=== PATIENT | female | born 1965 | race Caucasian/White ===

== ENCOUNTER 2017-12-14 01:10 | Inpatient (IN) | payer MEDICAID ==
--- NOTE | 2017-12-14 01:17 | ED Physician Chart ---
ED Chief Complaint/HPI - Patient Information Date Seen:: 12/14/17 Time Seen:: 01:17 Chief Complaint:: Head trauma History of Present Illness:: 52 yo female was brought by neighbour from home to ER for a right temporal scalp laceration. Patient could not remember a fall but later recalled possible seizure on the floor hitting her head on a furniture. Patient had history of alcoholic cirrhosis, hepatocellular carcinoma s/p transarterial chemoembolization (Jun 2016), upper GI bleed, coagulopathy, thrombocytopenia, and alcohol withdrawal seizure. Patient last drank alcohol two days ago. ED Review of Systems - Review of Systems General/Constitutional: No fever, Chills Skin: Skin lesions Head: Headache Eyes: No pain ENT: No nasal drainage Neck: No neck pain Cardio Vascular: No chest pain Pulmonary: No SOB GI: No nausea, No vomiting, Pain Musculoskeletal: Bone or joint pain, Back pain Neurological: Syncope ED Past Medical History - Past Medical History Past Medical History: Seizures (alcohol withdrawal seizure), Other (Alcoholic cirrhosis, hepatocellular carcinoma s/p TACE (Jun 2016), upper GI bleed, coagulopathy, thrombobytopenia) Social History: Non Smoker, Alcohol, No Drug Use Surgical History: other (abdominal surgery, transarterial chemoembolization) Family Medical History - Family Member Mother History Unknown: Yes ED Physical Exam - Physical Examination General/Constitutional: Awake, Alert Other Gen/Cons comments:: In significant distress, shaking and tremor of bilateral upper extremities Other Head comments:: 2cm superficial laceration on the right temporal scalp with oozing of venous blood Eyes: PERRL ENMT: Nasal exam nl Neck: No nuchal rigidity Respiratory: No Wheeze/Rhonchi/Rales Cardio Vascular: RRR, No murmur, gallop, rubs, NL S1 S2 GI: No tenderness/rebounding/guarding Extremities: normal strength in all extremities Other Extremities comments:: tremor of bilateral upper extremities, low back pain Neuro/Psych: Alert/oriented, No focal deficits ED Labs/Radiology/EKG Results - Lab Results Results: Laboratory Last Values WBC 9.6 Th/cmm (4.8-10.8) 12/14/17 01:25 RBC 3.35 Mil/cmm (3.80-5.10) L 12/14/17 01:25 Hgb 11.9 gm/dL (12-16) L 12/14/17 01:25 Hct 35.6 % (41.0-60) L 12/14/17 01:25 MCV 106.3 fl (81-100) H 12/14/17 01:25 MCH 35.4 pg (27.0-31.0) H 12/14/17 01:25 MCHC Differential 33.3 pg (28.0-36.0) 12/14/17 01:25 RDW 13.9 % (11.5-20.0) 12/14/17 01:25 Plt Count 81 Th/cmm (150-400) L 12/14/17 01:25 MPV 6.6 fl 12/14/17 01:25 Band Neutrophils % 3 % (0-10) 12/14/17 01:25 Neutrophils (Manual) 86 % (40-80) H 12/14/17 01:25 Lymphocytes 11 % (20-50) L 12/14/17 01:25 Platelet Estimate SLIGHT DECREASED (NORMAL) 12/14/17 01:25 Anisocytosis 2+ 12/14/17 01:25 Macrocytosis 2+ 12/14/17 01:25 PT 16.7 SECONDS (9.5-11.5) H 12/14/17 01:25 INR 1.57 (0.5-1.4) H 12/14/17 01:25 PTT (Actin FS) 33.0 SECONDS (26.0-38.0) 12/14/17 01:25 Sodium 136 mEq/L (136-145) 12/14/17 01:25 Potassium 3.5 mEq/L (3.5-5.1) 12/14/17 01:25 Chloride 94 mEq/L (98-107) L 12/14/17 01:25 Carbon Dioxide 20.4 mEq/L (21.0-31.0) L 12/14/17 01:25 Anion Gap 25.1 (7.0-16.0) H 12/14/17 01:25 BUN 7 mg/dL (7-25) 12/14/17 01:25 Creatinine 0.7 mg/dL (0.6-1.2) 12/14/17 01:25 Est GFR ( Amer) > 60.0 ml/min (>90) 12/14/17 01:25 Est GFR (Non-Af Amer) > 60.0 ml/min 12/14/17 01:25 BUN/Creatinine Ratio 10.0 12/14/17 01:25 Glucose 162 mg/dL (70-105) H 12/14/17 01:25 Calcium 9.5 mg/dL (8.6-10.3) 12/14/17 01:25 Total Bilirubin 4.9 mg/dL (0.3-1.0) H 12/14/17 01:25 AST 190 U/L (13-39) H 12/14/17 01:25 ALT 43 U/L (7-52) 12/14/17 01:25 Alkaline Phosphatase 319 U/L (34-104) H 12/14/17 01:25 Ammonia 127 umol/L (16-53) H 12/14/17 01:25 Total Protein 8.7 gm/dL (6.0-8.3) H 12/14/17 01:25 Albumin 4.0 gm/dL (3.7-5.3) 12/14/17 01:25 Globulin 4.7 gm/dL 12/14/17 01:25 Albumin/Globulin Ratio 0.9 (1.0-1.8) L 12/14/17 01:25 Ethyl Alcohol < 10 mg/dL (0-10) 12/14/17 01:25 Blood Type O POSITIVE 12/14/17 01:25 Antibody Screen NEGATIVE 12/14/17 01:25 - Radiology Results Results: CT head without contrast: no acute intracranial hemorrhage, midline shift or mass effect - EKG Interpretations EKG Time:: 01:31 Rate & Rhythm: 151, sinus tachycardia with multiple premature ventricular and supraventric Elizabeth: LVH Intervals: NE 93, QRSD 91 Comments:: Non specific ST-T changes ED Assessment - Assessment General Assessment: Syncope vs alcohol withdrawal seizure Right scalp laceration Tachycardia Macrocytic anemia Thrombocytopenia Coagulopathy Hyperammonemia secondary to liver cirrhosis Assessment/Comments:: CBC, CMP, PT/PTT, ammonia, etoh level CT head without contrast Laceration repair NS 1L IV bolus Zofran 4mg IV Lactulose 30g PO Librium 25mg PO Metoprolol 25mg po Metoprolol 10mg IV Toradol 30mg IV Tylenol 650mg PO Admit to telemetry for further evaluation. Location:: Right temporal laceration Laceration Type:: Simple Wound Length: 2 cm Prep/Irrigation:: NS, hydrogen peroxide, betadine Comments: After 1% lidocaine with epinephrine was injected to achieve local anesthesia, 3 simple interrupted sutures was placed with with 4.0 Prolene and hemostasis was achieved. Bacitracin was applied topically at the wound. Patient tolerated procedure well. ED Septic Shock - . Is Septic Shock (SBP<90, OR Lactate>4 mmol\L) present?: No ED Reassessment (Disposition) - Reassessment Reassessment:: After metoprolol 25mg PO and metoprolol 10mg IV, patient's tachycardia was later converted to sinus rhythm. Reassessment Condition:: Improved - Patient Disposition Discharge/Transfer:: Acute Care w/in this hosp Admitting Medical Physician:: Eric Del Angel ED Discharge Plan - Patient Disposition Admit/Discharge/Transfer: Acute Care w/in this hosp Condition at Disposition: Stable
[2017-12-14] MEDS ORDERED: Sodium Chloride 0.9% 1,000 ML IV ONE (01:38)
[2017-12-14 01:41] LABS: HEMATOCRIT 35.6 % (41.0-60); HEMOGLOBIN 11.9 gm/dL (12-16); MEAN CORPUSCULAR HEMOGLOBIN 35.4 pg (27.0-31.0); MEAN CORPUSCULAR HGB CONC 33.3 pg (28.0-36.0); MEAN PLATELET VOLUME 6.6 fl; PLATELET COUNT 81 Th/cmm (150-400); RED BLOOD COUNT 3.35 Mil/cmm (3.80-5.10); RED CELL DISTRIBUTION WIDTH 13.9 % (11.5-20.0); WHITE BLOOD COUNT 9.6 Th/cmm (4.8-10.8)
[2017-12-14 01:51] LABS: INR 1.57 (0.5-1.4); PROTHROMBIN TIME (TEST) 16.7 SECONDS (9.5-11.5)
[2017-12-14 01:53] LABS: ALB/GLOB RATIO 0.9 (1.0-1.8); ALKALINE PHOSPHATASE 319 U/L (34-104); ANION GAP 25.1 (7.0-16.0); BILIRUBIN,TOTAL 4.9 mg/dL (0.3-1.0); BUN - UREA NITROGEN 7 mg/dL (7-25); CALCIUM SERUM 9.5 mg/dL (8.6-10.3); CARBON DIOXIDE 20.4 mEq/L (21.0-31.0); CHLORIDE 94 mEq/L (98-107); CREATININE - SERUM 0.7 mg/dL (0.6-1.2); GFR AFRICAN-AMERICAN > 60.0 ml/min (>90); GFR NON AFRICAN-AMERICAN > 60.0 ml/min; GLUCOSE 162 mg/dL (70-105); POTASSIUM SERUM 3.5 mEq/L (3.5-5.1); SGOT 190 U/L (13-39); SGPT/ALT 43 U/L (7-52); SODIUM SERUM 136 mEq/L (136-145); TOTAL PROTEIN,SERUM 8.7 gm/dL (6.0-8.3)
[2017-12-14 02:10] LABS: MANUAL DIFF REQUIRED? YES
[2017-12-14 02:26] LABS: BAND NEUTROPHILE 3 % (0-10); LYMPHOCYTE 11 % (20-50); NEUTROPHILS 86 % (40-80); TOTAL CELLS COUNTED 100
[2017-12-14 02:27] LABS: ANISOCYTOSIS 2+; PLATELET ESTIMATE SLIGHT DECREASED (NORMAL)
[2017-12-14 02:39] LABS: MEAN CELL VOLUME 106.3 fl (81-100)
[2017-12-14] MEDS ORDERED: Lactulose 10 Gm/15 mL 30mL UDC PO STA (02:46)
[2017-12-14] MEDS ORDERED: Bacitracin pkt 1 gm Pkt TP STA (02:47)
[2017-12-14] MEDS ORDERED: EPINEPHRine /Lidocaine 1% 20 mL Vial INJ ONE (02:55)
[2017-12-14] MEDS ORDERED: Bacitracin pkt 1 gm Pkt TP ONE (03:00)
[2017-12-14] MEDS ORDERED: Lactulose 10 Gm/15 mL 30mL UDC ONE (03:01)
[2017-12-14] MEDS ORDERED: Metoprolol tartrate 1 mg/ml 5mL Amp IV STA (03:47)
[2017-12-14] MEDS ORDERED: Metoprolol tartrate 1 mg/ml 5mL Amp IV ONE (03:51)
--- NOTE | 2017-12-14 07:52 | Diagnostic Imaging Report ---
Head CT without intravenous contrast Indication: Trauma Comparison: None Technique: Axial images were obtained from the vertex to the skull base without IV contrast. Coronal reconstructions were made. Total DLP: 764, CTDI42 FINDINGS: Images of the brain obtained without contrast demonstrate no acute hemorrhage. No mass lesions identified. The ventricles and basal cisterns are patent. The louis-white matter differentiation is preserved. There is no mass effect or midline shift. Atherosclerosis is noted. No skull fractures identified. There is mild soft tissue swelling of the right frontal scalp. The paranasal sinuses are clear. IMPRESSION: No acute intracranial abnormality. Mild soft tissue swelling of the right frontal scalp. No evidence of a skull fracture. Atherosclerotic vascular disease.
[2017-12-14 08:03] LABS: URINE MICROSCOPIC INDICATED? YES; URINE SOURCE RANDOM
[2017-12-14 08:25] LABS: URINE BILIRUBIN NEGATIVE (NEGATIVE); URINE BLOOD TRACE (NEGATIVE); URINE GLUCOSE (UA) NEGATIVE (NEGATIVE); URINE KETONE NEGATIVE (NEGATIVE); URINE LEUKOCYTE ESTERASE NEGATIVE (NEGATIVE); URINE NITRATE NEGATIVE (NEGATIVE); URINE PROTEIN TRACE mg/dL (NEGATIVE); URINE UROBILINOGEN 0.2 E.U./dL (0.2 - 1.0)
[2017-12-14 08:29] LABS: URINE CLARITY CLEAR (CLEAR); URINE COLOR YELLOW
[2017-12-14 08:35] LABS: URINE BACTERIA OCCASIONAL /hpf (NONE SEEN); URINE EPITHELIAL CELLS FEW /lpf (FEW); URINE WBC 0-2 /hpf (0-5)
[2017-12-14] MEDS: Hydrocodone/APAP 5mg/325mg Tab PO PRN ×2 (08:50→17:58)
--- NOTE | 2017-12-14 09:28 | History and Physical ---
History of Present Illness - [facility] Vital Signs: Last Vital Signs Temp 96.8 F 12/14/17 06:49 Pulse 81 12/14/17 06:49 Resp 20 12/14/17 06:49 BP 137/76 12/14/17 06:49 Pulse Ox 95 12/14/17 06:49 Family Medical History - Family Member Mother History Unknown: Yes - Medications Home Medications: Home Medication Medication Instructions Recorded Type metroNIDAZOLE [Flagyl] 500 mg PO TID 12/14/17 History - Allergies Allergies/Adverse Reactions: Allergies Allergy/AdvReac Type Severity Reaction Status Date / Time contrast Allergy Unknown Uncoded 12/14/17 01:17 - Lab Results All Lab Results last 24 hours: Laboratory Results - last 24 hr 12/14/17 12/14/17 12/14/17 01:25 01:25 01:25 WBC 9.6 RBC 3.35 L Hgb 11.9 L Hct 35.6 L MCV 106.3 H MCH 35.4 H MCHC Differential 33.3 RDW 13.9 Plt Count 81 L MPV 6.6 Band Neutrophils % 3 Neutrophils (Manual) 86 H Lymphocytes 11 L Platelet Estimate SLIGHT DECREASED Anisocytosis 2+ Macrocytosis 2+ PT 16.7 H INR 1.57 H PTT (Actin FS) 33.0 Sodium 136 Potassium 3.5 Chloride 94 L Carbon Dioxide 20.4 L Anion Gap 25.1 H BUN 7 Creatinine 0.7 Est GFR ( Amer) > 60.0 Est GFR (Non-Af Amer) > 60.0 BUN/Creatinine Ratio 10.0 Glucose 162 H Calcium 9.5 Total Bilirubin 4.9 H AST 190 H ALT 43 Alkaline Phosphatase 319 H Ammonia Total Protein 8.7 H Albumin 4.0 Globulin 4.7 Albumin/Globulin Ratio 0.9 L Urine Source Urine Color Urine Clarity Urine pH Ur Specific [place] Urine Protein Urine Glucose (UA) Urine Ketones Urine Blood Urine Nitrate Urine Bilirubin Urine Urobilinogen Ur Leukocyte Esterase Urine RBC Urine WBC Ur Epithelial Cells Urine Bacteria Ethyl Alcohol < 10 Blood Type Antibody Screen 12/14/17 12/14/17 12/14/17 01:25 01:25 06:00 WBC RBC Hgb Hct MCV MCH MCHC Differential RDW Plt Count MPV Band Neutrophils % Neutrophils (Manual) Lymphocytes Platelet Estimate Anisocytosis Macrocytosis PT INR PTT (Actin FS) Sodium Potassium Chloride Carbon Dioxide Anion Gap BUN Creatinine Est GFR ( Amer) Est GFR (Non-Af Amer) BUN/Creatinine Ratio Glucose Calcium Total Bilirubin AST ALT Alkaline Phosphatase Ammonia 127 H Total Protein Albumin Globulin Albumin/Globulin Ratio Urine Source RANDOM Urine Color YELLOW Urine Clarity CLEAR Urine pH 8.0 Ur Specific [place] 1.015 Urine Protein TRACE Urine Glucose (UA) NEGATIVE Urine Ketones NEGATIVE Urine Blood TRACE Urine Nitrate NEGATIVE Urine Bilirubin NEGATIVE Urine Urobilinogen 0.2 Ur Leukocyte Esterase NEGATIVE Urine RBC 2-5 Urine WBC 0-2 Ur Epithelial Cells FEW Urine Bacteria OCCASIONAL Ethyl Alcohol Blood Type O POSITIVE Antibody Screen NEGATIVE - Assessment Assessment: Current Active Problems Problem Status Onset Alcohol abuse Acute Fall at home Acute
[2017-12-14] MEDS: D5-0.9%NS 1,000 ML IV SCH ×2 (09:53→22:44)
[2017-12-14] MEDS: Multivitamin w/ Minerals Tab PO SCH (10:19)
[2017-12-14] MEDS: Lactulose 10 Gm/15 mL 30mL UDC PO SCH ×2 (10:19→17:59)
--- NOTE | 2017-12-14 14:05 | History & Physical ---
ADMIT DATE: PATIENT IDENTIFICATION: A 53-year-old female. CHIEF COMPLAINT: Altered level of consciousness. HISTORY OF PRESENT ILLNESS: A 52-year-old female with history of alcoholic cirrhosis and hepatocellular carcinoma, status post chemotherapy, has history of alcohol withdrawal seizure as well. She was brought into the Emergency Room by neighbor after the patient was noted to have a right temporal scalp laceration. The patient was evaluated by Emergency Room MD and noted to have ____ associated with elevated ammonia level ____, the patient was advised to be admitted. PAST MEDICAL HISTORY: Remarkable for: 1. Cirrhosis of liver. 2. Alcohol abuse. 3. Hepatocellular carcinoma. 4. Seizure disorder. 5. History of Clostridium difficile colitis. MEDICATIONS AT HOME: She was taking the Flagyl. ALLERGIES: The patient is not allergic to any medication. SOCIAL HISTORY: The patient resides by herself and she has recently moved from [place]. The patient has a history of alcohol use, but no smoking cigarette or illicit drug use. FAMILY MEDICAL HISTORY: Remarkable for cancer. REVIEW OF SYSTEMS: The patient denies any headache. Denies any blurred vision, double vision. Denies any dysphagia. Does admit to having excessive sleepiness and palpitation. Denies any chest pain. Denies any abdominal pain. Denies any hematemesis. Denies any seizure or syncopal episode. Denies any seizure as long as she remembers, but she does state that she has history of seizure. PHYSICAL EXAMINATION: GENERAL: A 52-year-old looks older than her stated age, lying in the bed, flat affect. VITAL SIGNS: Temperature 98.6, pulse is 100, respiratory rate 20, blood pressure 141/83. HEENT: Normocephalic, atraumatic. Extraocular muscles intact. Sclerae with icterus. Tongue was pink and dry. Intact surgical dressing noted on the scalp area. NECK: Supple, no JVD, lymph nodes, or thyromegaly. HEART: Both heart sounds are regular. Tachycardia noted. CHEST: Lung equal in expansion with no expiratory wheezing. ABDOMEN: Distention. Bowel sounds noted. No palpable mass. EXTREMITIES: No edema. Pulses are +1. NEUROLOGIC: Alert, awake, follows commands. Moving upper and lower extremities with a decreased power. AVAILABLE DIAGNOSTIC DATA: White count of 9.6; hemoglobin 11.9; platelet count of 81,000. BUN and creatinine is 7 and 0.7. Bilirubin is 4.9. AST and ALT ____and 43, alkaline phosphatase is 319. Ammonia 127, total protein 8.7, globulin ratio is 0.9. Urine is unremarkable. Alcohol level is less than 10. EKG has SVT with unifocal PVCs noted. CT scan of the head was unremarkable. CLINICAL IMPRESSION: 1. Most likely alcohol withdrawal seizure with fall. 2. Status post lacerated wound on the right muslim area. 3. Hepatic encephalopathy. 4. Alcohol dependence. 5. Supraventricular tachycardia. 6. Multiple PVCs. 7. Thrombocytopenia. 8. Hepatic encephalopathy. 9. History of Clostridium difficile colitis. 10. Mild rhabdomyolysis. 11. High risk for fall. PLAN: 1. Admit this patient to telemetry unit. 2. Cardiology consultation. 3. GI and a psych consultation. 4. IV fluid. 5. Librium. 6. Folic acid, multivitamin, thiamine. 7. [place] for the pain. 8. Cardiac enzymes. 9. 2D echocardiogram. 10. Follow lab. 11. Follow consult recommendation. 12. Seizure precaution. 13. IV fluid. 14. Multivitamin, folic acid and thiamine. 15. Care plan reviewed and discussed with staff. JOB# [id number]
[2017-12-14 22:51] LABS: A1C % < 4.0 % (4.0-6.0); HEMOGLOBIN 13 g/dL (4.0-35.0)
[2017-12-15 01:01] LABS: ALB/GLOB RATIO 0.9 (1.0-1.8); ALBUMIN 3.4 gm/dL (3.7-5.3); ALKALINE PHOSPHATASE 224 U/L (34-104); BILIRUBIN,TOTAL 4.4 mg/dL (0.3-1.0); BUN - UREA NITROGEN 7 mg/dL (7-25); CALCIUM SERUM 8.4 mg/dL (8.6-10.3); CARBON DIOXIDE 25.9 mEq/L (21.0-31.0); CHLORIDE 99 mEq/L (98-107); CREATININE - SERUM 0.7 mg/dL (0.6-1.2); CREATININE KINASE 405 U/L (30-223); GFR AFRICAN-AMERICAN > 60.0 ml/min (>90); GFR NON AFRICAN-AMERICAN > 60.0 ml/min; GLUCOSE 135 mg/dL (70-105); SGOT 126 U/L (13-39); SGPT/ALT 31 U/L (7-52); SODIUM SERUM 134 mEq/L (136-145); TOTAL PROTEIN,SERUM 7.1 gm/dL (6.0-8.3)
[2017-12-15 01:09] LABS: POTASSIUM SERUM 2.9 mEq/L (3.5-5.1)
[2017-12-15] MEDS ORDERED: Potassium Chloride 20 mEq ER Tab PO ONE (02:30)
[2017-12-15] MEDS ORDERED: KCL 20mEq/100mL Premix 20 MEQ/100 ML PIGGYBACK IV ONE (02:30)
--- NOTE | 2017-12-15 05:22 | Consultation ---
DATE OF CONSULTATION: 12/14/2017 REASON FOR CONSULTATION: Abnormal liver enzyme. HISTORY OF PRESENT ILLNESS: This consult was obtained through the request of Dr. Del Angel for this 52-year-old with history of liver cancer due to cirrhosis from alcoholism who presented to the ER, brought in by a neighbor for head trauma after a fall. She was admitted and was found to have abnormal liver enzymes, so GI consult was called in for further evaluation. The patient is a poor historian. She cannot remember much about the fall. She denies drinking. PAST MEDICAL HISTORY: Liver cancer. PAST SURGICAL HISTORY: She had TACE as a procedure done for liver tumors. SOCIAL HISTORY: Denies smoking or drugs. Denies alcohol, but admits she was drinking in the past. By discussion by the center where she was treated, it seems she was still drinking at that time and she came, seems to be under the influence. FAMILY HISTORY: Noncontributory. ALLERGIES: No known drug allergies. MEDICATIONS: [place], Librium, folic acid, lactulose, Ativan, and vitamin B1. REVIEW OF SYSTEMS: Unobtainable. PHYSICAL EXAMINATION: GENERAL: The patient is awake, oriented to self, and in mild distress. VITAL SIGNS: Blood pressure is 141/83, heart rate 81, respiratory rate 18, and temperature is 98.4. HEAD AND NECK: Pupils reactive to light. Extraocular muscles could not be tested. The head is covered in bandage. Oral cavity, no lesion. NECK: Supple. CHEST: Good air entry. LUNGS: Clear to auscultation. CARDIOVASCULAR: Regular rate and rhythm. No murmur or gallop. ABDOMEN: Soft, positive bowel sounds. Abdomen was not tender. EXTREMITIES: Lower extremities, no edema. CENTRAL NERVOUS SYSTEM: Grossly nonfocal. LABORATORY DATA: Alcohol was less than 10. CPK was 584. Albumin is 4, bilirubin 4.9, AST 190, and ALT 43. PT 16.7 seconds. White count 9.6 and H and H are 11.9 and 35.6 with platelets of 81. IMPRESSION: A 52-year-old with history of alcohol abuse, history of cirrhosis, and history of liver cancer, now presenting with head trauma and abnormal liver enzymes. ASSESSMENT AND PLAN: Abnormal liver enzyme. This picture is consistent with the liver tumor with cirrhosis with ongoing alcohol use. Discussed with at [facility]. She is not a candidate right now for anymore TACE, but if she stopped drinking and liver numbers are better, she can be done. So, we will talk with the patient about sobriety and again rehab, joining Alcoholic Anonymous, etc., and then ____ but at this time doing any more study is not going to change much of the plan. 2. Cirrhosis, as above. 3. Alcohol abuse, as above. 4. Other medical problems such as head trauma, etc., as per Dr. Del Angel. Thank you, Dr. Del Angel, for allowing me to participate in the care of the patient. If you have any further questions, please let me know. JOB# [id number]
[2017-12-15 06:45] LABS: HEMOGLOBIN 10.6 gm/dL (12-16); MEAN CORPUSCULAR HEMOGLOBIN 35.1 pg (27.0-31.0); PLATELET COUNT 60 Th/cmm (150-400); RED BLOOD COUNT 3.01 Mil/cmm (3.80-5.10); WHITE BLOOD COUNT 8.3 Th/cmm (4.8-10.8)
[2017-12-15 06:52] LABS: MANUAL DIFF REQUIRED? YES
[2017-12-15 06:53] LABS: MEAN CELL VOLUME 106.3 fl (81-100)
[2017-12-15 07:45] LABS: BAND NEUTROPHILE 1 % (0-10); LYMPHOCYTE 10 % (20-50); MONOCYTE 4 % (2-10); NEUTROPHILS 85 % (40-80); TOTAL CELLS COUNTED 100
[2017-12-15 07:46] LABS: PLATELET ESTIMATE DECREASED PLATELETS (NORMAL)
[2017-12-15] MEDS: Lactulose 10 Gm/15 mL 30mL UDC PO SCH ×3 (08:04→21:36)
[2017-12-15] MEDS: Multivitamin w/ Minerals Tab PO SCH (08:04)
--- NOTE | 2017-12-15 08:58 | Consultation ---
DATE OF CONSULTATION: 12/15/2017 PSYCHIATRIC CONSULT PATIENT'S AGE: 52-year-old. SEX: Female. PHYSICIAN: Dr. Del Angel. COMBINATION BUILDING INSPECTOR: Dr. Fenton. TYPE OF THE REPORT: Psychiatric consult. REASON FOR THE CONSULT: Confusion and agitation. HISTORY OF PRESENT ILLNESS: The patient is a 52-year-old female who was admitted to the hospital because of altered level of conscious. The patient has history of alcohol cirrhosis. The patient also has hepatocellular carcinoma. The patient also has history of seizure disorder related to alcohol. Apparently, the patient is still drinking and last drink was 2 days prior to her admission when she drank unknown amount of vodka according to the report from her to the staff. The patient currently is confused. She is actively hallucinating and actively responding to stimuli and talking to imaginary objects. She also is restless and tried to get off the bed. PAST PSYCHIATRIC HISTORY: The patient has a problem with alcoholism. PAST MEDICAL HISTORY: The patient, as mentioned above, has a problem with liver . SOCIAL HISTORY: The patient is . Unable to get much information except the patient has been drinking heavily. MENTAL STATUS EXAM: The patient appears her stated age. Irritable mood. Anxious. Flat affect. Thought processes was rambling and the patient is confused, answer questions. The patient did not answer question regarding suicide or homicide. The patient is alert, but seems to be disoriented to time, place, person and situation. Unable to assess her memory orientation at this time because the patient is delirium and confused. ASSESSMENT: PRIMARY DIAGNOSIS: Delirium tremens. SECONDARY DIAGNOSIS: Alcohol use disorder. Alcohol hallucinosis. MEDICAL DIAGNOSIS: Rule out head trauma. Rule out intracranial hemorrhage. TREATMENT PLAN: We will monitor the patient's behavior closely. We will work on her psychosis and her delirium. Also, we will add Haldol and increase Ativan. Also, recommend CAT scan of the head. Thanks to Dr. Del Angel and we will follow with you. JOB# [id number]
--- NOTE | 2017-12-15 12:16 | Diagnostic Imaging Report ---
Head CT without intravenous contrast Indication: Altered level of consciousness Comparison: Head CT on 12/14/2017 Technique: Axial images were obtained from the vertex to the skull base without IV contrast. Coronal reconstructions were made. Total DLP: 710, CTDI37 FINDINGS: Images of the brain obtained without contrast demonstrate small area of high density seen along the anterior falcine region measuring 2 mm in greatest transverse dimension. No intraparenchymal hemorrhage identified. No mass effect or midline shift. Atrophy is noted. There is diffuse soft tissue swelling throughout the scalp bilaterally. This is increased since prior exam. Diffuse left preorbital and left facial soft tissue swelling is noted. The orbits and intraconal compartments are intact No evidence of a skull fracture. There is mucosal thickening in the paranasal sinuses. IMPRESSION: Small area of high density along the anterior falcine region measuring up to 2 mm in greatest transverse dimension. Findings may present falcine calcifications. A small focus of falcine hemorrhage is considered less likely but cannot be completely excluded.. A follow-up CT in 24 to 48 hours would provide additional detail and assessment. Diffuse scalp soft tissue swelling and edema now extending to the left side and involving the left facial and left preseptal regions. Findings may be due to infectious process. Clinical correlation and follow-up is recommended. Atrophy. Final results were administered to the referring team on 12/15/2017 at 12:13 PM.
[2017-12-15] MEDS: Mag Sulfate 2gm/50mL Premix 2 GM/50 ML BAG IV SCH ×2 (18:06→20:02)
--- NOTE | 2017-12-15 18:52 | Consultation ---
DATE OF CONSULTATION: 12/14/[address] Del Angel. HISTORY AND PHYSICAL: This is a 52-year-old female patient who had a fall with laceration on the scalp. Following this, the patient was brought to the Emergency Room, the patient had seizure activities secondary to alcohol withdrawal. During the hospital stay, the patient had supraventricular tachycardia and hence Cardiology consult was requested. PAST MEDICAL HISTORY: Alcohol dependence, seizure disorder, cirrhosis of liver, hepatocellular carcinoma with chemotherapy and surgery, thrombocytopenia, hepatic encephalopathy, rhabdomyolysis. FAMILY HISTORY: Unremarkable. SOCIAL HISTORY: The patient has a history of alcohol abuse. ALLERGIES: None. PHYSICAL EXAMINATION: VITAL SIGNS: Blood pressure 130/80, pulse 140, respirations 28. HEAD: The patient has laceration on the scalp. EYES: Pupils equal, reactive to light. Fundi show AV nicking, sclerae white, conjunctivae pink. NECK: Carotid 2+. Normal upstroke. JVD flat. Thyroid not palpable. Lymph nodes not palpable. CHEST: Shows increased AP diameter. No kyphosis, scoliosis. LUNGS: Bilateral bronchovesicular breath sounds. HEART: PMI fifth intercostal space with lateral to midclavicular line. S1, S2, S3, S4. S1 irregular. Systolic murmur, grade 2/6, lower left sternal border with radiation. ABDOMEN: Soft. Liver, spleen not palpable. EXTREMITIES: Peripheral pulses 2+. No pedal edema. NEUROLOGIC: The patient has seizure activity and alcohol withdrawal. CLINICAL IMPRESSION: Supraventricular tachycardia, headache secondary to fall with head injury, laceration to the scalp, alcohol dependence, seizure disorder, cirrhosis of liver, hepatocellular carcinoma with chemotherapy and surgery, thrombocytopenia, hepatic encephalopathy, rhabdomyolysis. PLAN: The patient to control the heart rate. We will hold off anticoagulation with recent head injury as well as thrombocytopenia and alcohol dependence and monitor the patient closely. We will get echocardiogram. JOB# [id number]
--- NOTE | 2017-12-16 00:17 | Progress Notes ---
DATE: 12/15/2017 IDENTIFICATION: A 52-year-old female. SUBJECTIVE: The patient seen and examined. The patient is extremely confused and yesterday's mental status: The patient is alert and talking nonsense at this time, there was big change since yesterday. The patient has been seen by billing spec and psychiatrist as well. The patient had 2 loose bowel movements yesterday as well. The patient's left upper eyelids are swollen where patient had a suture done on the left parietal area. The patient remained hemodynamically stable, though. OBJECTIVE: VITAL SIGNS: Temperature is 98.7, pulse 96, respiratory rate is 20, blood pressure 137/77. HEENT: Remarkable for a scalp hematoma noted with the left upper eyelid swollen. Sclerae with icterus. Tongue was pink and dry. NECK: Supple, no JVD. HEART: Regular. CHEST: Lung equal in expansion, no expiratory wheezing. ABDOMEN: Soft. Bowel sounds are present. EXTREMITIES: No edema. AVAILABLE DIAGNOSTIC DATA: Hemoglobin 10.6, platelet count of 60,000. Potassium 2.9, BUN and creatinine 7 and 0.7. AST, ALT is 126 and 31 with alkaline phosphatase of 224. Troponin is negative. Cardiac enzymes, CPK is 405. Urine was negative yesterday. CT head was done yesterday, which was unremarkable. CLINICAL IMPRESSION: 1. Altered mental status, etiology needs to determine, most likely metabolic encephalopathy. 2. Hypokalemia. 3. Status post fall after alcohol withdrawal seizure and has a sutured wound. 4. Thrombocytopenia secondary to alcoholic cirrhosis. 5. Microcytic anemia. 6. Cirrhosis of liver. 7. History of liver cancer. 8. Noncompliance and continued to drink alcohol. 9. SVT resolved. PLAN: The patient is admitted at this time to telemetry unit. Potassium has been replaced. I will get the stat CT scan of the head to rule out any intracranial pathology. The patient will have cardiac monitoring as well. The patient is currently receiving Librium, which is may be a contributing factor. We will cut down the Librium as well, optimize the lactulose. Check the ammonia level as well. Continue hydration and follow the fashion consultant sales's recommendation as well. Await further testing of her test results as well. Care plan has been reviewed and discussed with staff as well. JOB# [id number]
[2017-12-16 06:41] LABS: HEMOGLOBIN 9.3 gm/dL (12-16); MEAN CELL VOLUME 104.9 fl (81-100); MEAN CORPUSCULAR HGB CONC 33.4 pg (28.0-36.0); MEAN PLATELET VOLUME 7.4 fl; PLATELET COUNT 66 Th/cmm (150-400); RED BLOOD COUNT 2.67 Mil/cmm (3.80-5.10); WHITE BLOOD COUNT 7.3 Th/cmm (4.8-10.8)
[2017-12-16 06:53] LABS: ALB/GLOB RATIO 0.9 (1.0-1.8); ALBUMIN 3.3 gm/dL (3.7-5.3); ALKALINE PHOSPHATASE 202 U/L (34-104); ANION GAP 11.3 (7.0-16.0); BILIRUBIN,TOTAL 4.6 mg/dL (0.3-1.0); BUN - UREA NITROGEN 7 mg/dL (7-25); CALCIUM SERUM 9.3 mg/dL (8.6-10.3); CARBON DIOXIDE 25.2 mEq/L (21.0-31.0); CHLORIDE 103 mEq/L (98-107); CREATININE - SERUM 0.7 mg/dL (0.6-1.2); GFR AFRICAN-AMERICAN > 60.0 ml/min (>90); GFR NON AFRICAN-AMERICAN > 60.0 ml/min; GLUCOSE 102 mg/dL (70-105); POTASSIUM SERUM 3.5 mEq/L (3.5-5.1); SGOT 95 U/L (13-39); SGPT/ALT 28 U/L (7-52); SODIUM SERUM 136 mEq/L (136-145)
[2017-12-16 06:56] LABS: % BASOPHILS 0.7 % (0.0-2.0); % EOSINOPHILS 0.8 % (0.0-5.0); % LYMPHOCYTES 12.1 % (20.0-50.0); % MONOCYTES 11.3 % (2.0-10.0); % NEUTROPHILS 75.1 % (40.0-80.0)
[2017-12-16 06:59] LABS: EOSINOPHILE ABSOLUTE 0.1 Th/cmm (0.1-0.4); LYMPHOCYTE ABSOLUTE 0.9 Th/cmm (1.5-3.0); MONOCYTE ABSOLUTE 0.8 Th/cmm (0.3-1.0); NEUTROPHILE ABSOLUTE 5.5 Th/cmm (1.8-8.0)
[2017-12-16] MEDS: Lactulose 10 Gm/15 mL 30mL UDC PO SCH ×3 (08:59→22:01)
[2017-12-16] MEDS: Multivitamin w/ Minerals Tab PO SCH (09:00)
--- NOTE | 2017-12-16 12:16 | Cardiology ---
12/14/[address] Del Angel. M-MODE ECHOCARDIOGRAM: Mitral valve, anterior leaflet of mitral valve shows normal excursion, EF velocity. Posterior leaflet of mitral valve shows normal excursion. Left ventricular posterior wall shows increased thickness, normal excursion. Interventricular septum shows increased thickness, normal excursion, hypertrophy of the left ventricle, ejection fraction 55%. Left atrium normal. Aortic root shows normal dimension, normal excursion of aortic leaflets. CONCLUSION: Hypertrophy of the left ventricle, ejection fraction 55%. 2D ECHO ON THE SAME PATIENT: Long axis view showed normal-sized left ventricle with hypertrophy of the left ventricle. Left atrium normal. Aortic root shows normal dimension, normal excursion of aortic leaflets. Short axis view of mitral valve normal. Short axis view of aortic valve normal. Apical four chamber view showed normal-sized left ventricle with hypertrophy of the left ventricle. Left atrium enlarged. Right ventricular cavity, right atrium normal, no pericardial effusion. CONCLUSION: Hypertrophy of the left ventricle, ejection fraction 55%. Doppler study shows mild mitral regurgitation, mild tricuspid regurgitation. JOB# [id number]
--- NOTE | 2017-12-17 02:16 | Progress Notes ---
DATE: 12/16/2017 SUBJECTIVE: Chart reviewed and the patient interviewed. Also discussed the patient's condition with the staff and reviewed records and labs. The patient seems to be having brighter affect and less agitated. The patient also is interacting more. The patient admitted to her drinking problem. Currently, the patient is cooperative and seems to be less delirious, although she still has some residual. ASSESSMENT: The patient is still delirious and going through withdrawal. The patient is showing some improvement. PLAN: We will continue detox and monitor her behavior and continue current medications and followup. Also, the patient will need long-term rehabilitation. JOB# [id number]
--- NOTE | 2017-12-17 02:31 | Progress Notes ---
DATE: CHIEF COMPLAINT: A 52-year-old female. The patient is seen and examined. The patient is lying in the bed. The patient is more alert, awake, and oriented. The patient wants to go home. The patient denies any chest pain, shortness of breath, or palpitation. PHYSICAL EXAMINATION: VITAL SIGNS: Temperature 98.6, pulse is 62, respiratory rate 18, and blood pressure 130/70. HEENT: No facial asymmetry. NECK: Supple, no JVD. HEART: Regular. CHEST: Lungs are equal in expansion. No wheezing and no crackles. ABDOMEN: Soft. No guarding and no rigidity. Bowel sounds present. No palpable mass. EXTREMITIES: No edema. NEUROLOGIC: Alert, awake, and follows command. CLINICAL IMPRESSION: 1. End-stage liver disease. 2. Liver cancer. 3. Alcohol dependence. 4. Psychotic disorder. PLAN: After discussion with the patient about terminal diagnosis of liver cancer and cirrhosis of liver ____, I did discuss with the patient about the aggressive therapy versus palliative and hospice care. After explaining pros and cons of both the treatment plan, the patient has decided to opt for palliative and hospice care. At this time, we will have palliative and hospice care evaluation and we will make further decision. JOB# [id number]
--- NOTE | 2017-12-17 09:06 | Progress Notes ---
DATE: SUBJECTIVE: Chart reviewed and the patient interviewed. Also discussed the patient's condition with the staff and reviewed records and labs. The patient's affect is brighter. The patient continues to show improvement. She is alert and oriented to time, place, person and situation. "I have stopped drinking." The patient is motivated to stop drinking, but at the same time, she is still anxious. She is interacting appropriately. She denies any intention to harm herself or others. She continued to comply with medications with no side effects of medications. Also, decreased symptoms and signs of withdrawal. ASSESSMENT: The patient is less confused and less delusional. TREATMENT PLAN: Continue monitoring her behavior. Also, continue to work on her drinking. The patient is not suicidal or homicidal, and can be discharged home when medically stable with plans for outpatient treatment and rehabilitation or the patient can go directly to an inpatient rehabilitation program. [facility]# [id number]
[2017-12-17] MEDS: Multivitamin w/ Minerals Tab PO SCH (09:10)
[2017-12-17] MEDS: Lactulose 10 Gm/15 mL 30mL UDC PO SCH ×3 (09:10→20:41)
--- NOTE | 2017-12-17 16:32 | GI Progress Note ---
Subjective - Review of Systems Service Date: 12/17/17 Events since last encounter: No events Subjective: No complaints Objective - Results Result Diagrams: 12/16/17 05:45 12/16/17 05:45 Recent Labs: Laboratory Last Values WBC 7.3 Th/cmm (4.8-10.8) 12/16/17 05:45 RBC 2.67 Mil/cmm (3.80-5.10) L 12/16/17 05:45 Hgb 9.3 gm/dL (12-16) L 12/16/17 05:45 Hct 28.0 % (41.0-60) L 12/16/17 05:45 MCV 104.9 fl (81-100) H 12/16/17 05:45 MCH 35.0 pg (27.0-31.0) H 12/16/17 05:45 MCHC Differential 33.4 pg (28.0-36.0) 12/16/17 05:45 RDW 14.0 % (11.5-20.0) 12/16/17 05:45 Plt Count 66 Th/cmm (150-400) L 12/16/17 05:45 MPV 7.4 fl 12/16/17 05:45 Neutrophils % 75.1 % (40.0-80.0) 12/16/17 05:45 Band Neutrophils % 1 % (0-10) 12/15/17 06:10 Lymphocytes % 12.1 % (20.0-50.0) L 12/16/17 05:45 Monocytes % 11.3 % (2.0-10.0) H 12/16/17 05:45 Eosinophils % 0.8 % (0.0-5.0) 12/16/17 05:45 Basophils % 0.7 % (0.0-2.0) 12/16/17 05:45 Neutrophils (Manual) 85 % (40-80) H 12/15/17 06:10 Lymphocytes 10 % (20-50) L 12/15/17 06:10 Monocytes 4 % (2-10) 12/15/17 06:10 Platelet Estimate DECREASED PLATELETS (NORMAL) 12/15/17 06:10 Anisocytosis 2+ 12/14/17 01:25 Macrocytosis 1+ 12/15/17 06:10 PT 16.7 SECONDS (9.5-11.5) H 12/14/17 01:25 INR 1.57 (0.5-1.4) H 12/14/17 01:25 PTT (Actin FS) 33.0 SECONDS (26.0-38.0) 12/14/17 01:25 Sodium 136 mEq/L (136-145) 12/16/17 05:45 Potassium 3.5 mEq/L (3.5-5.1) 12/16/17 05:45 Chloride 103 mEq/L (98-107) 12/16/17 05:45 Carbon Dioxide 25.2 mEq/L (21.0-31.0) 12/16/17 05:45 Anion Gap 11.3 (7.0-16.0) 12/16/17 05:45 BUN 7 mg/dL (7-25) 12/16/17 05:45 Creatinine 0.7 mg/dL (0.6-1.2) 12/16/17 05:45 Est GFR ( Amer) > 60.0 ml/min (>90) 12/16/17 05:45 Est GFR (Non-Af Amer) > 60.0 ml/min 12/16/17 05:45 BUN/Creatinine Ratio 10.0 12/16/17 05:45 Glucose 102 mg/dL (70-105) 12/16/17 05:45 Hemoglobin A1c % < 4.0 % (4.0-6.0) L 12/14/17 01:25 Calcium 9.3 mg/dL (8.6-10.3) 12/16/17 05:45 Magnesium 2.0 mg/dL (1.9-2.7) 12/16/17 05:45 Total Bilirubin 4.6 mg/dL (0.3-1.0) H 12/16/17 05:45 AST 95 U/L (13-39) H 12/16/17 05:45 ALT 28 U/L (7-52) 12/16/17 05:45 Alkaline Phosphatase 202 U/L (34-104) H 12/16/17 05:45 Ammonia 79 umol/L (16-53) H 12/16/17 05:45 Creatine Kinase 405 U/L (30-223) H 12/14/17 23:59 CK-MB (CK-2) 8.3 ng/mL (0.6-6.3) H 12/14/17 23:59 Troponin I 0.03 ng/mL (0.01-0.05) 12/14/17 23:59 Total Protein 7.0 gm/dL (6.0-8.3) 12/16/17 05:45 Albumin 3.3 gm/dL (3.7-5.3) L 12/16/17 05:45 Globulin 3.7 gm/dL 12/16/17 05:45 Albumin/Globulin Ratio 0.9 (1.0-1.8) L 12/16/17 05:45 Urine Source RANDOM 12/14/17 06:00 Urine Color YELLOW 12/14/17 06:00 Urine Clarity CLEAR (CLEAR) 12/14/17 06:00 Urine pH 8.0 (4.6 - 8.0) 12/14/17 06:00 Ur Specific [place] 1.015 (1.005-1.030) 12/14/17 06:00 Urine Protein TRACE mg/dL (NEGATIVE) 12/14/17 06:00 Urine Glucose (UA) NEGATIVE mg/dL (NEGATIVE) 12/14/17 06:00 Urine Ketones NEGATIVE mg/dL (NEGATIVE) 12/14/17 06:00 Urine Blood TRACE (NEGATIVE) 12/14/17 06:00 Urine Nitrate NEGATIVE (NEGATIVE) 12/14/17 06:00 Urine Bilirubin NEGATIVE (NEGATIVE) 12/14/17 06:00 Urine Urobilinogen 0.2 E.U./dL (0.2 - 1.0) 12/14/17 06:00 Ur Leukocyte Esterase NEGATIVE (NEGATIVE) 12/14/17 06:00 Urine RBC 2-5 /hpf (0-5) 12/14/17 06:00 Urine WBC 0-2 /hpf (0-5) 12/14/17 06:00 Ur Epithelial Cells FEW /lpf (FEW) 12/14/17 06:00 Urine Bacteria OCCASIONAL /hpf (NONE SEEN) 12/14/17 06:00 Ethyl Alcohol < 10 mg/dL (0-10) 12/14/17 01:25 Blood Type O POSITIVE 12/14/17 01:25 Antibody Screen NEGATIVE 12/14/17 01:25 - Physical Exam Vitals and I&O: Vital Signs Temp 97.6 F 12/17/17 05:00 Pulse 78 12/17/17 05:00 Resp 17 12/17/17 05:00 BP 110/67 12/17/17 05:00 Pulse Ox 98 12/17/17 05:00 Intake & Output 12/16/17 12/17/17 12/17/17 18:59 06:59 18:59 Intake Total 250 200 Output Total 3 Balance 250 197 Weight (lbs) 95.254 kg 95.254 kg Intake: Oral 250 200 Output: Urine/Stool Mix 3 Other: Weight Source Estimated Estimated Active Medications: Current Medications Acetaminophen/Hydrocodone Bitart ([place] 5mg/325mg) 1 tab PO Q6H PRN PRN Reason: Pain (Mild) Stop: 02/12/18 08:15 Last Admin: 12/14/17 17:58 Dose: 1 tab Chlordiazepoxide (Librium) 25 mg PO BID [facility]; Protocol Stop: 02/13/18 16:59 Last Admin: 12/17/17 09:10 Dose: 25 mg Folic Acid (Folate) 1 mg PO DAILY [facility] Stop: 02/12/18 09:29 Last Admin: 12/17/17 09:10 Dose: 1 mg Haloperidol (Haldol) 3 mg PO TID [facility]; Protocol Stop: 02/13/18 08:59 Last Admin: 12/17/17 14:46 Dose: 3 mg Dextrose/Sodium Chloride (D5-0.9%Ns) 1,000 mls @ 75 mls/hr IV .[id number] [facility] Stop: 02/12/18 09:29 Last Admin: 12/14/17 22:44 Dose: 75 mls/hr Lactulose (Cephulac) 30 gm PO TID [facility] Stop: 02/13/18 13:59 Last Admin: 12/17/17 14:46 Dose: 30 gm Lorazepam (Ativan) 2 mg IVP Q4HR PRN; Protocol PRN Reason: Alcohol Withdrawal Stop: 02/12/18 09:20 Last Admin: 12/16/17 16:07 Dose: 2 mg Lorazepam (Ativan) 1 mg IVP TID [facility]; Protocol Stop: 02/13/18 08:59 Last Admin: 12/17/17 14:46 Dose: 1 mg Mupirocin (Bactroban Oint) 1 appl NS BID [facility] Stop: 12/21/17 17:01 Last Admin: 12/17/17 12:24 Dose: 1 appl Rifaximin (Xifaxan) 600 mg PO BID [facility] Stop: 02/13/18 16:59 Last Admin: 12/17/17 09:10 Dose: 600 mg Thiamine HCl (Vitamin B1) 100 mg PO DAILY [facility] Stop: 02/12/18 09:29 Last Admin: 12/17/17 09:10 Dose: 100 mg General: Alert, Mild distress Neck: Supple Cardiovascular: Regular rate, Normal S1, Normal S2 Lungs: Clear to auscultation Abdomen: Bowel sounds, Soft Assessment/Plan - Problem List Patient Problems: All Active Problems Alcohol abuse (Acute) F10.10 Fall at home (Acute) W19.XXXA, Y92.009 Hepatocellular carcinoma (Acute) - Plan Plan: 1.Alcohol abuse (Acute) F10.10\ Advised about stopping Fall at home (Acute) W19.XXXA, Y92.009 per PCP Hepatocellular carcinoma (Acute) S/P TACE. TACE on hold because of elevated bilirubin and ETOH F/U with Dr Ocampo as OPT
[2017-12-17] MEDS: D5-0.9%NS 1,000 ML IV SCH (18:11)
--- NOTE | 2017-12-18 00:14 | Progress Notes ---
DATE: 12/17/2017 SUBJECTIVE: The patient seen and examined. The patient is lying in the bed, more alert and awake. Discussion with discharge planning. The patient noted to have emergency medical hospice is not covered. The patient is not suicidal or homicidal. The patient is less confused. The patient is able to eat fairly well. OBJECTIVE: On exam, VITAL SIGNS: See nurse's note. HEENT: Remarkable for icterus with intact dressing noted. NECK: Supple. No JVD. HEART: Regular. CHEST AND LUNG: Equal in expansion. LUNGS: No wheezing, no crackles. ABDOMEN: Soft. EXTREMITIES: No edema. AVAILABLE DIAGNOSTIC DATA: Has been reviewed. CLINICAL IMPRESSION: 1. Alcohol dependence. 2. Cirrhosis of liver. 3. History of liver cancer. 4. Thrombocytopenia. 5. Macrocytic anemia. 6. Electrolyte imbalance, corrected. 7. Encephalopathy, improving. 8. Underlying depression. PLAN: Continue current medicine as prescribed. Follow lab and consult on the recommendation. Possible discharge to go home, once the patient has structured family structured support system outside of the hospital. JOB# [id number]
[2017-12-18] MEDS: D5-0.9%NS 1,000 ML IV SCH (06:34)
--- NOTE | 2017-12-18 08:58 | GI Progress Note ---
Subjective - Review of Systems Service Date: 12/18/17 Subjective: Eating breakfast, feeling ok today. Objective - Results Result Diagrams: 12/16/17 05:45 12/16/17 05:45 Recent Labs: Laboratory Last Values WBC 7.3 Th/cmm (4.8-10.8) 12/16/17 05:45 RBC 2.67 Mil/cmm (3.80-5.10) L 12/16/17 05:45 Hgb 9.3 gm/dL (12-16) L 12/16/17 05:45 Hct 28.0 % (41.0-60) L 12/16/17 05:45 MCV 104.9 fl (81-100) H 12/16/17 05:45 MCH 35.0 pg (27.0-31.0) H 12/16/17 05:45 MCHC Differential 33.4 pg (28.0-36.0) 12/16/17 05:45 RDW 14.0 % (11.5-20.0) 12/16/17 05:45 Plt Count 66 Th/cmm (150-400) L 12/16/17 05:45 MPV 7.4 fl 12/16/17 05:45 Neutrophils % 75.1 % (40.0-80.0) 12/16/17 05:45 Band Neutrophils % 1 % (0-10) 12/15/17 06:10 Lymphocytes % 12.1 % (20.0-50.0) L 12/16/17 05:45 Monocytes % 11.3 % (2.0-10.0) H 12/16/17 05:45 Eosinophils % 0.8 % (0.0-5.0) 12/16/17 05:45 Basophils % 0.7 % (0.0-2.0) 12/16/17 05:45 Neutrophils (Manual) 85 % (40-80) H 12/15/17 06:10 Lymphocytes 10 % (20-50) L 12/15/17 06:10 Monocytes 4 % (2-10) 12/15/17 06:10 Platelet Estimate DECREASED PLATELETS (NORMAL) 12/15/17 06:10 Anisocytosis 2+ 12/14/17 01:25 Macrocytosis 1+ 12/15/17 06:10 PT 16.7 SECONDS (9.5-11.5) H 12/14/17 01:25 INR 1.57 (0.5-1.4) H 12/14/17 01:25 PTT (Actin FS) 33.0 SECONDS (26.0-38.0) 12/14/17 01:25 Sodium 136 mEq/L (136-145) 12/16/17 05:45 Potassium 3.5 mEq/L (3.5-5.1) 12/16/17 05:45 Chloride 103 mEq/L (98-107) 12/16/17 05:45 Carbon Dioxide 25.2 mEq/L (21.0-31.0) 12/16/17 05:45 Anion Gap 11.3 (7.0-16.0) 12/16/17 05:45 BUN 7 mg/dL (7-25) 12/16/17 05:45 Creatinine 0.7 mg/dL (0.6-1.2) 12/16/17 05:45 Est GFR ( Amer) > 60.0 ml/min (>90) 12/16/17 05:45 Est GFR (Non-Af Amer) > 60.0 ml/min 12/16/17 05:45 BUN/Creatinine Ratio 10.0 12/16/17 05:45 Glucose 102 mg/dL (70-105) 12/16/17 05:45 Hemoglobin A1c % < 4.0 % (4.0-6.0) L 12/14/17 01:25 Calcium 9.3 mg/dL (8.6-10.3) 12/16/17 05:45 Magnesium 2.0 mg/dL (1.9-2.7) 12/16/17 05:45 Total Bilirubin 4.6 mg/dL (0.3-1.0) H 12/16/17 05:45 AST 95 U/L (13-39) H 12/16/17 05:45 ALT 28 U/L (7-52) 12/16/17 05:45 Alkaline Phosphatase 202 U/L (34-104) H 12/16/17 05:45 Ammonia 79 umol/L (16-53) H 12/16/17 05:45 Creatine Kinase 405 U/L (30-223) H 12/14/17 23:59 CK-MB (CK-2) 8.3 ng/mL (0.6-6.3) H 12/14/17 23:59 Troponin I 0.03 ng/mL (0.01-0.05) 12/14/17 23:59 Total Protein 7.0 gm/dL (6.0-8.3) 12/16/17 05:45 Albumin 3.3 gm/dL (3.7-5.3) L 12/16/17 05:45 Globulin 3.7 gm/dL 12/16/17 05:45 Albumin/Globulin Ratio 0.9 (1.0-1.8) L 12/16/17 05:45 Urine Source RANDOM 12/14/17 06:00 Urine Color YELLOW 12/14/17 06:00 Urine Clarity CLEAR (CLEAR) 12/14/17 06:00 Urine pH 8.0 (4.6 - 8.0) 12/14/17 06:00 Ur Specific [place] 1.015 (1.005-1.030) 12/14/17 06:00 Urine Protein TRACE mg/dL (NEGATIVE) 12/14/17 06:00 Urine Glucose (UA) NEGATIVE mg/dL (NEGATIVE) 12/14/17 06:00 Urine Ketones NEGATIVE mg/dL (NEGATIVE) 12/14/17 06:00 Urine Blood TRACE (NEGATIVE) 12/14/17 06:00 Urine Nitrate NEGATIVE (NEGATIVE) 12/14/17 06:00 Urine Bilirubin NEGATIVE (NEGATIVE) 12/14/17 06:00 Urine Urobilinogen 0.2 E.U./dL (0.2 - 1.0) 12/14/17 06:00 Ur Leukocyte Esterase NEGATIVE (NEGATIVE) 12/14/17 06:00 Urine RBC 2-5 /hpf (0-5) 12/14/17 06:00 Urine WBC 0-2 /hpf (0-5) 12/14/17 06:00 Ur Epithelial Cells FEW /lpf (FEW) 12/14/17 06:00 Urine Bacteria OCCASIONAL /hpf (NONE SEEN) 12/14/17 06:00 Ethyl Alcohol < 10 mg/dL (0-10) 12/14/17 01:25 Blood Type O POSITIVE 12/14/17 01:25 Antibody Screen NEGATIVE 12/14/17 01:25 - Physical Exam Vitals and I&O: Vital Signs Temp 97.2 F 12/18/17 04:00 Pulse 92 12/18/17 04:00 Resp 18 12/18/17 04:00 BP 128/66 12/18/17 04:00 Pulse Ox 95 12/18/17 04:00 Intake & Output 12/17/17 12/18/17 12/18/17 18:59 06:59 18:59 Intake Total 750 1128.75 Balance 750 1128.75 Weight (lbs) 95.254 kg 58.695 kg Intake: Intake, IV Amount 928.75 D5-0.9%Ns 1,000 ml @ 75 928.75 mls/hr IV .[id number] [facility] Rx #:[id number] Oral 750 200 Other: # Voids 4 2 # Bowel Movements 2 2 Stool Characteristics Liquid Liquid Brown Green Weight Source Bedscale Bedscale Active Medications: Current Medications Acetaminophen/Hydrocodone Bitart ([place] 5mg/325mg) 1 tab PO Q6H PRN PRN Reason: Pain (Mild) Stop: 02/12/18 08:15 Last Admin: 12/14/17 17:58 Dose: 1 tab Chlordiazepoxide (Librium) 25 mg PO BID [facility]; Protocol Stop: 02/13/18 16:59 Last Admin: 12/17/17 18:05 Dose: 25 mg Folic Acid (Folate) 1 mg PO DAILY [facility] Stop: 02/12/18 09:29 Last Admin: 12/17/17 09:10 Dose: 1 mg Haloperidol (Haldol) 3 mg PO TID [facility]; Protocol Stop: 02/13/18 08:59 Last Admin: 12/17/17 20:41 Dose: 3 mg Dextrose/Sodium Chloride (D5-0.9%Ns) 1,000 mls @ 75 mls/hr IV .[id number] [facility] Stop: 02/12/18 09:29 Last Admin: 12/18/17 06:34 Dose: 75 mls/hr Lactulose (Cephulac) 30 gm PO TID [facility] Stop: 02/13/18 13:59 Last Admin: 12/17/17 20:41 Dose: 30 gm Lorazepam (Ativan) 2 mg IVP Q4HR PRN; Protocol PRN Reason: Alcohol Withdrawal Stop: 02/12/18 09:20 Last Admin: 12/16/17 16:07 Dose: 2 mg Lorazepam (Ativan) 1 mg IVP TID [facility]; Protocol Stop: 02/13/18 08:59 Last Admin: 12/17/17 22:19 Dose: 1 mg Mupirocin (Bactroban Oint) 1 appl NS BID [facility] Stop: 12/21/17 17:01 Last Admin: 12/17/17 18:05 Dose: 1 appl Rifaximin (Xifaxan) 600 mg PO BID [facility] Stop: 02/13/18 16:59 Last Admin: 12/17/17 18:05 Dose: 600 mg Thiamine HCl (Vitamin B1) 100 mg PO DAILY [facility] Stop: 02/12/18 09:29 Last Admin: 12/17/17 09:10 Dose: 100 mg General: Alert, Mild distress Neck: Supple Cardiovascular: Regular rate, Normal S1, Normal S2 Lungs: Clear to auscultation Abdomen: Bowel sounds, Soft, Hepatomegaly, Distended, no Tender, no Guarding Assessment/Plan - Problem List Patient Problems: All Active Problems Alcohol abuse (Acute) F10.10 Fall at home (Acute) W19.XXXA, Y92.009 Hepatocellular carcinoma (Acute) - Assessment Assessment: #Alcohol abuse (Acute) F10.10\ - Advised about stopping #Fall at home (Acute) W19.XXXA, Y92.009 - per PCP #Hepatocellular carcinoma (Acute) - S/P TACE in the past. - TACE on hold because of elevated bilirubin and ETOH - F/U with Dr Ocampo as OPT
[2017-12-18] MEDS: Multivitamin w/ Minerals Tab PO SCH (10:17)
[2017-12-18] MEDS: Lactulose 10 Gm/15 mL 30mL UDC PO SCH ×3 (10:26→21:22)
--- NOTE | 2017-12-18 17:35 | Progress Notes ---
DATE: 12/18/2017 IDENTIFICATION: A 52-year-old female. The patient seen and examined. The patient is lying in the bed. The patient has no new event. Awaiting safe disposition at home. Discussed with staff. There is no new event reported. The patient has tried to ambulate, though patient has not walked since the patient is admitted in the hospital. PHYSICAL EXAMINATION: VITAL SIGNS: Temperature 99.6, pulse is 93, respiratory rate 18, blood pressure 134/70. HEENT: No facial asymmetry. NECK: Supple, no JVD. HEART: Regular. LUNGS: Clear. ABDOMEN: Soft. EXTREMITIES: No edema. CLINICAL IMPRESSION: 1. Alcohol withdrawal seizure. 2. Cirrhosis of liver. 3. Hepatocellular carcinoma. 4. Alcohol dependence. 5. Underlying depression. 6. Debility. PLAN: Start physical therapy for now. Continue other medicines as prescribed. Follow lab. Follow b2b sales consultant recommendations. Discharge plan based on the patient's progress and safe discharge at home. [facility]# [id number]
[2017-12-18] MEDS: Acetaminophen 500 MG TAB PO PRN (18:33)
[2017-12-19 06:09] LABS: HEMATOCRIT 27.1 % (41.0-60); HEMOGLOBIN 8.7 gm/dL (12-16); MEAN CORPUSCULAR HEMOGLOBIN 34.5 pg (27.0-31.0); MEAN CORPUSCULAR HGB CONC 32.2 pg (28.0-36.0); PLATELET COUNT 116 Th/cmm (150-400); RED BLOOD COUNT 2.52 Mil/cmm (3.80-5.10); RED CELL DISTRIBUTION WIDTH 14.2 % (11.5-20.0)
[2017-12-19 06:18] LABS: ALB/GLOB RATIO 0.9 (1.0-1.8); ALBUMIN 2.9 gm/dL (3.7-5.3); ALKALINE PHOSPHATASE 150 U/L (34-104); ANION GAP 13.3 (7.0-16.0); BILIRUBIN,TOTAL 3.6 mg/dL (0.3-1.0); BUN - UREA NITROGEN 6 mg/dL (7-25); CALCIUM SERUM 8.4 mg/dL (8.6-10.3); CARBON DIOXIDE 18.9 mEq/L (21.0-31.0); CHLORIDE 107 mEq/L (98-107); CREATININE - SERUM 0.5 mg/dL (0.6-1.2); GFR AFRICAN-AMERICAN > 60.0 ml/min (>90); GFR NON AFRICAN-AMERICAN > 60.0 ml/min; GLUCOSE 106 mg/dL (70-105); POTASSIUM SERUM 3.2 mEq/L (3.5-5.1); SGOT 49 U/L (13-39); SGPT/ALT 17 U/L (7-52); SODIUM SERUM 136 mEq/L (136-145); TOTAL PROTEIN,SERUM 6.1 gm/dL (6.0-8.3)
[2017-12-19 06:56] LABS: MANUAL DIFF REQUIRED? YES
[2017-12-19 07:34] LABS: BAND NEUTROPHILE 2 % (0-10); BASOPHIL 3 % (0-3); EOSINOPHIL 1 % (0-5); LYMPHOCYTE 22 % (20-50); MONOCYTE 3 % (2-10); NEUTROPHILS 69 % (40-80); TOTAL CELLS COUNTED 100
[2017-12-19 07:35] LABS: ANISOCYTOSIS 1+; PLATELET ESTIMATE SLIGHT DECREASED (NORMAL)
--- NOTE | 2017-12-19 08:11 | GI Progress Note ---
Subjective - Review of Systems Service Date: 12/19/17 Subjective: No new events, some events of confusion Objective - Results Result Diagrams: 12/19/17 05:50 12/19/17 05:50 Recent Labs: Laboratory Last Values WBC 3.7 Th/cmm (4.8-10.8) L 12/19/17 05:50 RBC 2.52 Mil/cmm (3.80-5.10) L 12/19/17 05:50 Hgb 8.7 gm/dL (12-16) L 12/19/17 05:50 Hct 27.1 % (41.0-60) L 12/19/17 05:50 MCV 104.9 fl (81-100) H 12/16/17 05:45 MCH 34.5 pg (27.0-31.0) H 12/19/17 05:50 MCHC Differential 32.2 pg (28.0-36.0) 12/19/17 05:50 RDW 14.2 % (11.5-20.0) 12/19/17 05:50 Plt Count 116 Th/cmm (150-400) L 12/19/17 05:50 MPV 7.0 fl 12/19/17 05:50 Neutrophils % 75.1 % (40.0-80.0) 12/16/17 05:45 Band Neutrophils % 2 % (0-10) 12/19/17 05:50 Lymphocytes % 12.1 % (20.0-50.0) L 12/16/17 05:45 Monocytes % 11.3 % (2.0-10.0) H 12/16/17 05:45 Eosinophils % 0.8 % (0.0-5.0) 12/16/17 05:45 Basophils % 0.7 % (0.0-2.0) 12/16/17 05:45 Neutrophils (Manual) 69 % (40-80) 12/19/17 05:50 Lymphocytes 22 % (20-50) 12/19/17 05:50 Monocytes 3 % (2-10) 12/19/17 05:50 Eosinophils 1 % (0-5) 12/19/17 05:50 Basophils 3 % (0-3) 12/19/17 05:50 Platelet Estimate SLIGHT DECREASED (NORMAL) 12/19/17 05:50 Anisocytosis 1+ 12/19/17 05:50 Macrocytosis 1+ 12/19/17 05:50 PT 16.7 SECONDS (9.5-11.5) H 12/14/17 01:25 INR 1.57 (0.5-1.4) H 12/14/17 01:25 PTT (Actin FS) 33.0 SECONDS (26.0-38.0) 12/14/17 01:25 Sodium 136 mEq/L (136-145) 12/19/17 05:50 Potassium 3.2 mEq/L (3.5-5.1) L 12/19/17 05:50 Chloride 107 mEq/L (98-107) 12/19/17 05:50 Carbon Dioxide 18.9 mEq/L (21.0-31.0) L 12/19/17 05:50 Anion Gap 13.3 (7.0-16.0) 12/19/17 05:50 BUN 6 mg/dL (7-25) L 12/19/17 05:50 Creatinine 0.5 mg/dL (0.6-1.2) L 12/19/17 05:50 Est GFR ( Amer) > 60.0 ml/min (>90) 12/19/17 05:50 Est GFR (Non-Af Amer) > 60.0 ml/min 12/19/17 05:50 BUN/Creatinine Ratio 12.0 12/19/17 05:50 Glucose 106 mg/dL (70-105) H 12/19/17 05:50 Hemoglobin A1c % < 4.0 % (4.0-6.0) L 12/14/17 01:25 Calcium 8.4 mg/dL (8.6-10.3) L 12/19/17 05:50 Magnesium 2.0 mg/dL (1.9-2.7) 12/16/17 05:45 Total Bilirubin 3.6 mg/dL (0.3-1.0) H 12/19/17 05:50 AST 49 U/L (13-39) H 12/19/17 05:50 ALT 17 U/L (7-52) 12/19/17 05:50 Alkaline Phosphatase 150 U/L (34-104) H 12/19/17 05:50 Ammonia 86 umol/L (16-53) H 12/19/17 05:00 Creatine Kinase 405 U/L (30-223) H 12/14/17 23:59 CK-MB (CK-2) 8.3 ng/mL (0.6-6.3) H 12/14/17 23:59 Troponin I 0.03 ng/mL (0.01-0.05) 12/14/17 23:59 Total Protein 6.1 gm/dL (6.0-8.3) 12/19/17 05:50 Albumin 2.9 gm/dL (3.7-5.3) L 12/19/17 05:50 Globulin 3.2 gm/dL 12/19/17 05:50 Albumin/Globulin Ratio 0.9 (1.0-1.8) L 12/19/17 05:50 Urine Source RANDOM 12/14/17 06:00 Urine Color YELLOW 12/14/17 06:00 Urine Clarity CLEAR (CLEAR) 12/14/17 06:00 Urine pH 8.0 (4.6 - 8.0) 12/14/17 06:00 Ur Specific [place] 1.015 (1.005-1.030) 12/14/17 06:00 Urine Protein TRACE mg/dL (NEGATIVE) 12/14/17 06:00 Urine Glucose (UA) NEGATIVE mg/dL (NEGATIVE) 12/14/17 06:00 Urine Ketones NEGATIVE mg/dL (NEGATIVE) 12/14/17 06:00 Urine Blood TRACE (NEGATIVE) 12/14/17 06:00 Urine Nitrate NEGATIVE (NEGATIVE) 12/14/17 06:00 Urine Bilirubin NEGATIVE (NEGATIVE) 12/14/17 06:00 Urine Urobilinogen 0.2 E.U./dL (0.2 - 1.0) 12/14/17 06:00 Ur Leukocyte Esterase NEGATIVE (NEGATIVE) 12/14/17 06:00 Urine RBC 2-5 /hpf (0-5) 12/14/17 06:00 Urine WBC 0-2 /hpf (0-5) 12/14/17 06:00 Ur Epithelial Cells FEW /lpf (FEW) 12/14/17 06:00 Urine Bacteria OCCASIONAL /hpf (NONE SEEN) 12/14/17 06:00 Ethyl Alcohol < 10 mg/dL (0-10) 12/14/17 01:25 Blood Type O POSITIVE 12/14/17 01:25 Antibody Screen NEGATIVE 12/14/17 01:25 - Physical Exam Vitals and I&O: Vital Signs Temp 98.4 F 12/19/17 07:48 Pulse 82 12/19/17 07:48 Resp 18 12/19/17 07:48 BP 117/65 12/19/17 07:48 Pulse Ox 91 12/19/17 07:48 Intake & Output 12/18/17 12/19/17 12/19/17 18:59 06:59 18:59 Intake Total 650 200 Balance 650 200 Weight (lbs) 58.513 kg 58.513 kg Intake: Oral 650 200 Other: # Voids 4 1 Stool Characteristics Liquid Liquid Brown Brown Weight Source Bedscale Bedscale Active Medications: Current Medications Acetaminophen (Tylenol Extra Strength) 500 mg PO Q6H PRN PRN Reason: Fever > 101 Stop: 02/16/18 17:53 Last Admin: 12/18/17 18:33 Dose: 500 mg Acetaminophen/Hydrocodone Bitart ([place] 5mg/325mg) 1 tab PO Q6H PRN PRN Reason: Pain (Mild) Stop: 02/12/18 08:15 Last Admin: 12/14/17 17:58 Dose: 1 tab Chlordiazepoxide (Librium) 25 mg PO BID [facility]; Protocol Stop: 02/13/18 16:59 Last Admin: 12/18/17 18:33 Dose: 25 mg Folic Acid (Folate) 1 mg PO DAILY FRANCIS Stop: 02/12/18 09:29 Last Admin: 12/18/17 10:17 Dose: 1 mg Haloperidol (Haldol) 3 mg PO TID FRANCIS; Protocol Stop: 02/13/18 08:59 Last Admin: 12/18/17 21:07 Dose: 3 mg Dextrose/Sodium Chloride (D5-0.9%Ns) 1,000 mls @ 75 mls/hr IV .[id number] FRANCIS Stop: 02/12/18 09:29 Last Admin: 12/18/17 06:34 Dose: 75 mls/hr Lactulose (Cephulac) 30 gm PO TID FRANCIS Stop: 02/13/18 13:59 Last Admin: 12/18/17 21:22 Dose: Not Given Lorazepam (Ativan) 2 mg IVP Q4HR PRN; Protocol PRN Reason: Alcohol Withdrawal Stop: 02/12/18 09:20 Last Admin: 12/16/17 16:07 Dose: 2 mg Lorazepam (Ativan) 1 mg IVP TID FRANCIS; Protocol Stop: 02/13/18 08:59 Last Admin: 12/18/17 21:08 Dose: 1 mg Mupirocin (Bactroban Oint) 1 appl NS BID [facility] Stop: 12/21/17 17:01 Last Admin: 12/18/17 18:34 Dose: 1 appl Rifaximin (Xifaxan) 600 mg PO BID [facility] Stop: 02/13/18 16:59 Last Admin: 12/18/17 18:33 Dose: 600 mg Thiamine HCl (Vitamin B1) 100 mg PO DAILY [facility] Stop: 02/12/18 09:29 Last Admin: 12/18/17 10:19 Dose: 100 mg General: Alert, Mild distress Neck: Supple Cardiovascular: Regular rate Lungs: Clear to auscultation Abdomen: Bowel sounds, Soft, Hepatomegaly, Distended, no Tender, no Guarding Assessment/Plan - Problem List Patient Problems: All Active Problems Alcohol abuse (Acute) F10.10 Fall at home (Acute) W19.XXXA, Y92.009 Hepatocellular carcinoma (Acute) - Assessment Assessment: #Alcohol abuse - Advised about stopping #Fall at home - per PCP #Hepatocellular carcinoma (Acute) # Cirrhosis - S/P TACE in the past. - TACE on hold because of elevated bilirubin and ETOH use - on lactulose and rifaximin - F/U with Dr Ocampo as OPT
[2017-12-19] MEDS: Multivitamin w/ Minerals Tab PO SCH (09:10)
[2017-12-19] MEDS: Lactulose 10 Gm/15 mL 30mL UDC PO SCH ×3 (09:10→20:54)
[2017-12-19 10:29] LABS: WHITE BLOOD COUNT 3.7 Th/cmm (4.8-10.8)
[2017-12-19 10:32] LABS: MEAN CELL VOLUME 107.2 fl (81-100)
[2017-12-19] MEDS ORDERED: Potassium Chloride 20 mEq ER Tab PO ONE (13:02)
[2017-12-19] MEDS: D5-0.9%NS 1,000 ML IV SCH (13:55)
--- NOTE | 2017-12-19 19:29 | Progress Notes ---
DATE: 12/19/2017 IDENTIFICATION: The patient is a 52-year-old female. The patient seen and examined. The patient is lying comfortably. The patient is seen by supervisor airplane flight attendant and recommended to have an ultrasound. The patient is alert, answering questions appropriately. The patient has no active bleeding. PHYSICAL EXAMINATION: VITAL SIGNS: Temperature 98.3, pulse 80, respiratory rate 18, blood pressure 115/60. HEENT: No facial asymmetry. A staple wound noted. NECK: Supple, no JVD. HEART: Both heart sounds are regular. CHEST: Lung equal in expansion, no expiratory wheezing. ABDOMEN: Soft, palpable ascites noted. EXTREMITIES: No edema. AVAILABLE DIAGNOSTIC DATA: White count of 3.7, hemoglobin 8.7, platelet count 116,000. Potassium 3.2, BUN and creatinine 6 and 0.5, total bilirubin of 3.6, AST and ALT are 49 and . Ammonia of 86. CLINICAL IMPRESSION: 1. Hepatic encephalopathy. 2. Cirrhosis of liver. 3. Hepatocellular carcinoma. 4. Hypokalemia. 5. Pancytopenia. 6. Chronic alcohol abuse. 7. Psychotic disorder. 8. High risk for fall. 9. Status post sutured wound for laceration of the scalp. PLAN: Continue Librium. Continue IV fluid, continue to provide lactulose. Follow labs. Correct electrolytes. Follow remediation bioanalytics consultant recommendation. General nursing care as well. Care plan reviewed and discussed with staff. JOB# [id number]
[2017-12-20] MEDS: Acetaminophen 500 MG TAB PO PRN (00:41)
--- NOTE | 2017-12-20 07:59 | Diagnostic Imaging Report ---
Exam: Ultrasound examination abdomen. HISTORY: Abnormal liver function tests. Findings: Real-time ultrasound examination abdomen performed multiple planes. The study demonstrates intrahepatic 3.8 x 7.5 x 4.4 cm heterogeneous area and 3.1 x 4.1 x 3.6 cm which might represent hemangiomas clinical correlation CT examination with contrast material or MRI might be helpful There is evidence for cholelithiasis. The common bile duct measures 4 mm. Pancreas normal. The kidneys demonstrate no evidence of tracheal uropathy or nephrolithiasis. There is evidence of splenomegaly with spleen measuring 19 cm in span. No free fluid is noted. IMPRESSION: 1. Hepatosplenomegaly, abnormal ill-defined lesions within the liver might represent hemangiomas contrast CT examination or MRI examination might be helpful. 2. Cholelithiasis.
[2017-12-20] MEDS: Lactulose 10 Gm/15 mL 30mL UDC PO SCH ×3 (09:00→20:33)
[2017-12-20] MEDS: Multivitamin w/ Minerals Tab PO SCH (09:01)
[2017-12-20] MEDS ORDERED: Potassium Chloride 20 mEq ER Tab PO ONE (11:38)
[2017-12-20] MEDS: D5-0.9%NS 1,000 ML IV SCH ×2 (14:08→17:46)
--- NOTE | 2017-12-20 18:08 | GI Progress Note ---
Subjective - Review of Systems Service Date: 12/20/17 Subjective: GI NOTE EVENTS NOTED. NIRALI SOME ORAL DIET. Objective - Results Result Diagrams: 12/19/17 05:50 12/19/17 05:50 Recent Labs: Laboratory Last Values WBC 3.7 Th/cmm (4.8-10.8) L 12/19/17 05:50 RBC 2.52 Mil/cmm (3.80-5.10) L 12/19/17 05:50 Hgb 8.7 gm/dL (12-16) L 12/19/17 05:50 Hct 27.1 % (41.0-60) L 12/19/17 05:50 MCV 107.2 fl (81-100) H 12/19/17 05:50 MCH 34.5 pg (27.0-31.0) H 12/19/17 05:50 MCHC Differential 32.2 pg (28.0-36.0) 12/19/17 05:50 RDW 14.2 % (11.5-20.0) 12/19/17 05:50 Plt Count 116 Th/cmm (150-400) L 12/19/17 05:50 MPV 7.0 fl 12/19/17 05:50 Neutrophils % 75.1 % (40.0-80.0) 12/16/17 05:45 Band Neutrophils % 2 % (0-10) 12/19/17 05:50 Lymphocytes % 12.1 % (20.0-50.0) L 12/16/17 05:45 Monocytes % 11.3 % (2.0-10.0) H 12/16/17 05:45 Eosinophils % 0.8 % (0.0-5.0) 12/16/17 05:45 Basophils % 0.7 % (0.0-2.0) 12/16/17 05:45 Neutrophils (Manual) 69 % (40-80) 12/19/17 05:50 Lymphocytes 22 % (20-50) 12/19/17 05:50 Monocytes 3 % (2-10) 12/19/17 05:50 Eosinophils 1 % (0-5) 12/19/17 05:50 Basophils 3 % (0-3) 12/19/17 05:50 Platelet Estimate SLIGHT DECREASED (NORMAL) 12/19/17 05:50 Anisocytosis 1+ 06/24/18 05:50 Macrocytosis 1+ 12/19/17 05:50 PT 16.7 SECONDS (9.5-11.5) H 12/14/17 01:25 INR 1.57 (0.5-1.4) H 12/14/17 01:25 PTT (Actin FS) 33.0 SECONDS (26.0-38.0) 12/14/17 01:25 Sodium 136 mEq/L (136-145) 12/19/17 05:50 Potassium 3.2 mEq/L (3.5-5.1) L 12/19/17 05:50 Chloride 107 mEq/L (98-107) 12/19/17 05:50 Carbon Dioxide 18.9 mEq/L (21.0-31.0) L 12/19/17 05:50 Anion Gap 13.3 (7.0-16.0) 12/19/17 05:50 BUN 6 mg/dL (7-25) L 12/19/17 05:50 Creatinine 0.5 mg/dL (0.6-1.2) L 12/19/17 05:50 Est GFR ( Amer) > 60.0 ml/min (>90) 12/19/17 05:50 Est GFR (Non-Af Amer) > 60.0 ml/min 12/19/17 05:50 BUN/Creatinine Ratio 12.0 12/19/17 05:50 Glucose 106 mg/dL (70-105) H 12/19/17 05:50 Hemoglobin A1c % < 4.0 % (4.0-6.0) L 12/14/17 01:25 Calcium 8.4 mg/dL (8.6-10.3) L 12/19/17 05:50 Magnesium 2.0 mg/dL (1.9-2.7) 12/16/17 05:45 Total Bilirubin 3.6 mg/dL (0.3-1.0) H 12/19/17 05:50 AST 49 U/L (13-39) H 12/19/17 05:50 ALT 17 U/L (7-52) 12/19/17 05:50 Alkaline Phosphatase 150 U/L (34-104) H 12/19/17 05:50 Ammonia 86 umol/L (16-53) H 12/19/17 05:00 Creatine Kinase 405 U/L (30-223) H 12/14/17 23:59 CK-MB (CK-2) 8.3 ng/mL (0.6-6.3) H 12/14/17 23:59 Troponin I 0.03 ng/mL (0.01-0.05) 12/14/17 23:59 Total Protein 6.1 gm/dL (6.0-8.3) 12/19/17 05:50 Albumin 2.9 gm/dL (3.7-5.3) L 12/19/17 05:50 Globulin 3.2 gm/dL 12/19/17 05:50 Albumin/Globulin Ratio 0.9 (1.0-1.8) L 12/19/17 05:50 Urine Source RANDOM 12/14/17 06:00 Urine Color YELLOW 12/14/17 06:00 Urine Clarity CLEAR (CLEAR) 12/14/17 06:00 Urine pH 8.0 (4.6 - 8.0) 12/14/17 06:00 Ur Specific [place] 1.015 (1.005-1.030) 12/14/17 06:00 Urine Protein TRACE mg/dL (NEGATIVE) 12/14/17 06:00 Urine Glucose (UA) NEGATIVE mg/dL (NEGATIVE) 12/14/17 06:00 Urine Ketones NEGATIVE mg/dL (NEGATIVE) 12/14/17 06:00 Urine Blood TRACE (NEGATIVE) 12/14/17 06:00 Urine Nitrate NEGATIVE (NEGATIVE) 12/14/17 06:00 Urine Bilirubin NEGATIVE (NEGATIVE) 12/14/17 06:00 Urine Urobilinogen 0.2 E.U./dL (0.2 - 1.0) 12/14/17 06:00 Ur Leukocyte Esterase NEGATIVE (NEGATIVE) 12/14/17 06:00 Urine RBC 2-5 /hpf (0-5) 12/14/17 06:00 Urine WBC 0-2 /hpf (0-5) 12/14/17 06:00 Ur Epithelial Cells FEW /lpf (FEW) 12/14/17 06:00 Urine Bacteria OCCASIONAL /hpf (NONE SEEN) 12/14/17 06:00 Ethyl Alcohol < 10 mg/dL (0-10) 12/14/17 01:25 Blood Type O POSITIVE 12/14/17 01:25 Antibody Screen NEGATIVE 12/14/17 01:25 - Physical Exam Vitals and I&O: Vital Signs Temp 98.6 F 12/20/17 17:51 Pulse 87 12/20/17 17:51 Resp 18 12/20/17 17:51 BP 99/55 12/20/17 17:51 Pulse Ox 97 12/20/17 17:51 Intake & Output 12/19/17 12/20/17 12/20/17 18:59 06:59 18:59 Intake Total 650 1200 272.5 Balance 650 1200 272.5 Weight (lbs) 58.513 kg 58.513 kg Intake: Intake, IV Amount 1000 272.5 D5-0.9%Ns 1,000 ml @ 75 1000 272.5 mls/hr IV .[id number] FRANCIS Rx #:[id number] Oral 650 200 Other: # Voids 4 # Bowel Movements 1 Stool Characteristics Liquid Soft Brown Weight Source Bedscale Estimated Active Medications: Current Medications Acetaminophen (Tylenol Extra Strength) 500 mg PO Q6H PRN PRN Reason: Fever > 101 Stop: 02/16/18 17:53 Last Admin: 12/20/17 00:41 Dose: 500 mg Acetaminophen/Hydrocodone Bitart ([place] 5mg/325mg) 1 tab PO Q6H PRN PRN Reason: Pain (Mild) Stop: 02/12/18 08:15 Last Admin: 12/14/17 17:58 Dose: 1 tab Chlordiazepoxide (Librium) 25 mg PO BID FRANCIS; Protocol Stop: 02/13/18 16:59 Last Admin: 12/20/17 17:39 Dose: 25 mg Folic Acid (Folate) 1 mg PO DAILY FRANCIS Stop: 02/12/18 09:29 Last Admin: 12/20/17 09:01 Dose: 1 mg Haloperidol (Haldol) 3 mg PO TID FRANCIS; Protocol Stop: 02/13/18 08:59 Last Admin: 12/20/17 14:04 Dose: 3 mg Dextrose/Sodium Chloride (D5-0.9%Ns) 1,000 mls @ 75 mls/hr IV .[id number] FRANCIS Stop: 02/12/18 09:29 Last Admin: 12/20/17 17:46 Dose: 75 mls/hr Lactulose (Cephulac) 30 gm PO TID FRANCIS Stop: 02/13/18 13:59 Last Admin: 12/20/17 14:04 Dose: 30 gm Lorazepam (Ativan) 2 mg IVP Q4HR PRN; Protocol PRN Reason: Alcohol Withdrawal Stop: 02/12/18 09:20 Last Admin: 12/16/17 16:07 Dose: 2 mg Lorazepam (Ativan) 1 mg IVP TID FRANCIS; Protocol Stop: 02/13/18 08:59 Last Admin: 12/20/17 14:05 Dose: 1 mg Mupirocin (Bactroban Oint) 1 appl NS BID FRANCIS Stop: 12/21/17 17:01 Last Admin: 12/20/17 17:39 Dose: 1 appl Rifaximin (Xifaxan) 600 mg PO BID FRANCIS Stop: 02/13/18 16:59 Last Admin: 12/20/17 17:39 Dose: 600 mg Thiamine HCl (Vitamin B1) 100 mg PO DAILY FRANCIS Stop: 02/12/18 09:29 Last Admin: 12/20/17 09:01 Dose: 100 mg General: Alert, Mild distress Neck: Supple Cardiovascular: Regular rate Lungs: Clear to auscultation Abdomen: Bowel sounds, Soft, Hepatomegaly, Distended, no Tender, no Guarding Assessment/Plan - Problem List Patient Problems: All Active Problems Alcohol abuse (Acute) F10.10 Fall at home (Acute) W19.XXXA, Y92.009 Hepatocellular carcinoma (Acute) - Assessment Assessment: IMPRESSION/RECOMMENDATIONS: #Alcohol abuse, ACTIVE. - Advised about stopping #Fall at home - per PCP #Hepatocellular carcinoma (Acute) # Cirrhosis - S/P TACE in the past. - TACE on hold because of elevated bilirubin and ETOH use - on lactulose and rifaximin - F/U with Dr Ocampo as OPT - ENCOURAGE ORAL DIETARY INTAKE.
--- NOTE | 2017-12-20 23:10 | Progress Notes ---
DATE: 12/20/2017 SUBJECTIVE: The patient seen and examined. The patient is lying in the bed comfortably, alert, awake, oriented, wants to go home though the patient is unsafe to be discharged since the patient lives with her and is not available. The patient has not walked as well. The patient is very unsteady. PHYSICAL EXAMINATION: VITAL SIGNS: Temperature 97.1, pulse 81, respiratory 18, blood pressure 130/72. HEENT: Sclerae with icterus. Tongue was pink and dry. NECK: Supple. No JVD. HEART: Regular. CHEST AND LUNG: Equal in expansion, no wheezing, no crackles. ABDOMEN: Soft, palpable ascites noted. EXTREMITIES: No edema. CLINICAL IMPRESSION: 1. Ascites. 2. Hepatocellular carcinoma. 3. Hepatic encephalopathy. 4. Pancytopenia. 5. Alcohol dependence. 6. Psychotic disorder. 7. Degenerative joint disease. 8. Status post sutured wound for laceration of the scalp. PLAN: 1. Continue current medication as prescribed. PT, OT. 2. Follow lab. 3. Discharged to home once the patient has a well support system established. JOB# [id number]
--- NOTE | 2017-12-21 03:28 | Progress Notes ---
DATE: 12/20/[address] Fenton. Case was discussed with staff of the patient, reviewed records. This is a 52-year-old female who was admitted on 12/14/[address] Fenton was consulted because of confusion and agitation. The patient also has hepatocellular carcinoma. There was a history of seizure disorder related to alcohol. The patient is still drinking. Last drink was 2 days prior to admission. The patient was confused, hallucinating, responding to stimuli, unable to give much information. The patient seems to be showing a bit progress, some improvement. The patient is motivated to stop drinking. She is still somewhat anxious, but interacting appropriately. Denied any intent to harm herself or others. She has been compliant with the medication. She is less delusional. No side effects with the medication, no sedation, no nausea. The patient has been on Librium for detox, folic acid, Haldol 2 mg 3 times a day, Ativan 1 mg 3 times a day with no side effects, no sedation, no nausea and we will continue the patient in group therapy, milieu therapy, and adjust medications as needed. JOB# [id number]
[2017-12-21 05:13] LABS: ANION GAP 12.1 (7.0-16.0); BUN - UREA NITROGEN 4 mg/dL (7-25); CALCIUM SERUM 8.5 mg/dL (8.6-10.3); CARBON DIOXIDE 17.8 mEq/L (21.0-31.0); CHLORIDE 109 mEq/L (98-107); CREATININE - SERUM 0.5 mg/dL (0.6-1.2); GFR AFRICAN-AMERICAN > 60.0 ml/min (>90); GFR NON AFRICAN-AMERICAN > 60.0 ml/min; GLUCOSE 108 mg/dL (70-105); POTASSIUM SERUM 3.9 mEq/L (3.5-5.1); SODIUM SERUM 135 mEq/L (136-145)
[2017-12-21] MEDS: Multivitamin w/ Minerals Tab PO SCH (08:35)
[2017-12-21] MEDS: Lactulose 10 Gm/15 mL 30mL UDC PO SCH (08:35)
--- NOTE | 2017-12-21 10:00 | GI Progress Note ---
Subjective - Review of Systems Service Date: 12/21/17 Subjective: GI NOTE EVENTS NOTED. NIRALI ORAL DIET. Objective - Results Result Diagrams: 12/19/17 05:50 12/21/17 04:45 Recent Labs: Laboratory Last Values WBC 3.7 Th/cmm (4.8-10.8) L 12/19/17 05:50 RBC 2.52 Mil/cmm (3.80-5.10) L 12/19/17 05:50 Hgb 8.7 gm/dL (12-16) L 12/19/17 05:50 Hct 27.1 % (41.0-60) L 12/19/17 05:50 MCV 107.2 fl (81-100) H 12/19/17 05:50 MCH 34.5 pg (27.0-31.0) H 12/19/17 05:50 MCHC Differential 32.2 pg (28.0-36.0) 12/19/17 05:50 RDW 14.2 % (11.5-20.0) 12/19/17 05:50 Plt Count 116 Th/cmm (150-400) L 12/19/17 05:50 MPV 7.0 fl 12/19/17 05:50 Neutrophils % 75.1 % (40.0-80.0) 12/16/17 05:45 Band Neutrophils % 2 % (0-10) 12/19/17 05:50 Lymphocytes % 12.1 % (20.0-50.0) L 12/16/17 05:45 Monocytes % 11.3 % (2.0-10.0) H 12/16/17 05:45 Eosinophils % 0.8 % (0.0-5.0) 12/16/17 05:45 Basophils % 0.7 % (0.0-2.0) 12/16/17 05:45 Neutrophils (Manual) 69 % (40-80) 12/19/17 05:50 Lymphocytes 22 % (20-50) 12/19/17 05:50 Monocytes 3 % (2-10) 12/19/17 05:50 Eosinophils 1 % (0-5) 12/19/17 05:50 Basophils 3 % (0-3) 12/19/17 05:50 Platelet Estimate SLIGHT DECREASED (NORMAL) 12/19/17 05:50 Anisocytosis 1+ 12/19/17 05:50 Macrocytosis 1+ 12/19/17 05:50 PT 16.7 SECONDS (9.5-11.5) H 12/14/17 01:25 INR 1.57 (0.5-1.4) H 12/14/17 01:25 PTT (Actin FS) 33.0 SECONDS (26.0-38.0) 12/14/17 01:25 Sodium 135 mEq/L (136-145) L 12/21/17 04:45 Potassium 3.9 mEq/L (3.5-5.1) 12/21/17 04:45 Chloride 109 mEq/L (98-107) H 12/21/17 04:45 Carbon Dioxide 17.8 mEq/L (21.0-31.0) L 12/21/17 04:45 Anion Gap 12.1 (7.0-16.0) 12/21/17 04:45 BUN 4 mg/dL (7-25) L 12/21/17 04:45 Creatinine 0.5 mg/dL (0.6-1.2) L 12/21/17 04:45 Est GFR ( Amer) > 60.0 ml/min (>90) 12/21/17 04:45 Est GFR (Non-Af Amer) > 60.0 ml/min 12/21/17 04:45 BUN/Creatinine Ratio 8.0 12/21/17 04:45 Glucose 108 mg/dL (70-105) H 12/21/17 04:45 Hemoglobin A1c % < 4.0 % (4.0-6.0) L 12/14/17 01:25 Calcium 8.5 mg/dL (8.6-10.3) L 12/21/17 04:45 Magnesium 2.0 mg/dL (1.9-2.7) 12/16/17 05:45 Total Bilirubin 3.6 mg/dL (0.3-1.0) H 12/19/17 05:50 AST 49 U/L (13-39) H 12/19/17 05:50 ALT 17 U/L (7-52) 12/19/17 05:50 Alkaline Phosphatase 150 U/L (34-104) H 12/19/17 05:50 Ammonia 86 umol/L (16-53) H 12/19/17 05:00 Creatine Kinase 405 U/L (30-223) H 12/14/17 23:59 CK-MB (CK-2) 8.3 ng/mL (0.6-6.3) H 12/14/17 23:59 Troponin I 0.03 ng/mL (0.01-0.05) 12/14/17 23:59 Total Protein 6.1 gm/dL (6.0-8.3) 12/19/17 05:50 Albumin 2.9 gm/dL (3.7-5.3) L 12/19/17 05:50 Globulin 3.2 gm/dL 12/19/17 05:50 Albumin/Globulin Ratio 0.9 (1.0-1.8) L 12/19/17 05:50 Urine Source RANDOM 12/14/17 06:00 Urine Color YELLOW 12/14/17 06:00 Urine Clarity CLEAR (CLEAR) 12/14/17 06:00 Urine pH 8.0 (4.6 - 8.0) 12/14/17 06:00 Ur Specific [place] 1.015 (1.005-1.030) 12/14/17 06:00 Urine Protein TRACE mg/dL (NEGATIVE) 12/14/17 06:00 Urine Glucose (UA) NEGATIVE mg/dL (NEGATIVE) 12/14/17 06:00 Urine Ketones NEGATIVE mg/dL (NEGATIVE) 12/14/17 06:00 Urine Blood TRACE (NEGATIVE) 12/14/17 06:00 Urine Nitrate NEGATIVE (NEGATIVE) 12/14/17 06:00 Urine Bilirubin NEGATIVE (NEGATIVE) 12/14/17 06:00 Urine Urobilinogen 0.2 E.U./dL (0.2 - 1.0) 12/14/17 06:00 Ur Leukocyte Esterase NEGATIVE (NEGATIVE) 12/14/17 06:00 Urine RBC 2-5 /hpf (0-5) 12/14/17 06:00 Urine WBC 0-2 /hpf (0-5) 12/14/17 06:00 Ur Epithelial Cells FEW /lpf (FEW) 12/14/17 06:00 Urine Bacteria OCCASIONAL /hpf (NONE SEEN) 12/14/17 06:00 Ethyl Alcohol < 10 mg/dL (0-10) 12/14/17 01:25 Blood Type O POSITIVE 12/14/17 01:25 Antibody Screen NEGATIVE 12/14/17 01:25 - Physical Exam Vitals and I&O: Vital Signs Temp 99.1 F 12/21/17 09:34 Pulse 82 12/21/17 09:34 Resp 19 12/21/17 09:34 BP 124/73 12/21/17 09:34 Pulse Ox 94 12/21/17 09:34 Intake & Output 12/20/17 12/21/17 12/21/17 18:59 06:59 18:59 Intake Total 272.5 1460 Balance 272.5 1460 Weight (lbs) 58.513 kg Intake: Intake, IV Amount 272.5 D5-0.9%Ns 1,000 ml @ 75 272.5 mls/hr IV .[id number] [facility] Rx #:[id number] Oral 1460 Other: # Voids 3 # Bowel Movements 2 Stool Characteristics Soft Weight Source Estimated Active Medications: Current Medications Acetaminophen (Tylenol Extra Strength) 500 mg PO Q6H PRN PRN Reason: Fever > 101 Stop: 02/16/18 17:53 Last Admin: 12/20/17 00:41 Dose: 500 mg Acetaminophen/Hydrocodone Bitart ([place] 5mg/325mg) 1 tab PO Q6H PRN PRN Reason: Pain (Mild) Stop: 02/12/18 08:15 Last Admin: 12/14/17 17:58 Dose: 1 tab Chlordiazepoxide (Librium) 25 mg PO BID FRANCIS; Protocol Stop: 02/13/18 16:59 Last Admin: 12/21/17 08:36 Dose: 25 mg Folic Acid (Folate) 1 mg PO DAILY [facility] Stop: 02/12/18 09:29 Last Admin: 12/21/17 08:36 Dose: 1 mg Haloperidol (Haldol) 3 mg PO TID FRANCIS; Protocol Stop: 02/13/18 08:59 Last Admin: 12/21/17 08:35 Dose: 3 mg Dextrose/Sodium Chloride (D5-0.9%Ns) 1,000 mls @ 75 mls/hr IV .[id number] [facility] Stop: 02/12/18 09:29 Last Admin: 12/20/17 17:46 Dose: 75 mls/hr Lactulose (Cephulac) 30 gm PO TID FR[facility] Stop: 02/13/18 13:59 Last Admin: 12/21/17 08:35 Dose: 30 gm Lorazepam (Ativan) 2 mg IVP Q4HR PRN; Protocol PRN Reason: Alcohol Withdrawal Stop: 02/12/18 09:20 Last Admin: 12/16/17 16:07 Dose: 2 mg Lorazepam (Ativan) 1 mg IVP TID FRANCIS; Protocol Stop: 02/13/18 08:59 Last Admin: 12/21/17 08:36 Dose: 1 mg Mupirocin (Bactroban Oint) 1 appl NS BID FRANCIS Stop: 12/21/17 17:01 Last Admin: 12/21/17 08:35 Dose: 1 appl Rifaximin (Xifaxan) 600 mg PO BID FRANCIS Stop: 02/13/18 16:59 Last Admin: 12/21/17 08:36 Dose: 600 mg Thiamine HCl (Vitamin B1) 100 mg PO DAILY FR[facility] Stop: 02/12/18 09:29 Last Admin: 12/21/17 08:35 Dose: 100 mg General: Alert, Mild distress Neck: Supple Cardiovascular: Regular rate Lungs: Clear to auscultation Abdomen: Bowel sounds, Soft, Hepatomegaly, Distended, no Tender, no Guarding Assessment/Plan - Problem List Patient Problems: All Active Problems Alcohol abuse (Acute) F10.10 Fall at home (Acute) W19.XXXA, Y92.009 Hepatocellular carcinoma (Acute) - Assessment Assessment: IMPRESSION/RECOMMENDATIONS: #Alcohol abuse, active. - Advised about stopping #Fall at home - per PCP #Hepatocellular carcinoma (Acute) # Cirrhosis - S/P TACE in the past. - TACE on hold because of elevated bilirubin and ETOH use - on lactulose and rifaximin - F/U with Dr Ocampo as OPT - ENCOURAGE ORAL DIETARY INTAKE.
--- NOTE | 2017-12-21 17:02 | Discharge Summary ---
DATE OF DISCHARGE: 12/21/2017 PRINCIPAL DIAGNOSES: 1. Status post fall, caused laceration of the scalp, status post suturing. 2. Alcohol dependence and alcohol withdrawal. 3. Seizure disorder, most likely alcohol related. 4. Supraventricular tachycardia secondary to electrolyte imbalance. 5. Hepatic encephalopathy. 6. Hepatocellular carcinoma. 7. Pancytopenia secondary to chronic liver disease and alcohol abuse. 8. Generalized debility. 9. Jaundice. 10. Decline in self-care and mobility. BRIEF STATEMENT FOR THE REASON FOR ADMISSION: A 52-year-old female who looks older than her stated age, brought in to the Emergency Room by paramedics and family member after the patient was noted to have a bleeding scalp and noted to have a laceration, which did require emergency treatment. Unfortunately, the patient was noted to have SVT associated with elevated ammonia level and a complex history of hepatocellular carcinoma with seizure disorder. The patient was admitted to the hospital for further treatment. Please refer to my H and P for further information. HOSPITAL COURSE: The patient was admitted to telemetry unit. Cardiology, GI and psych consultations were requested. IV fluid, Librium, folic acid, multivitamin, thiamine, were given. Holden for pain was also provided as well. The patient was seen by all the disciplines and appropriate recommendations were given as well. The patient did have a waxing and waning mental status, which did require a followup CT scan of the head, which did reveal the patient had no evidence of any intracranial bleed, but scalp edema noted with mucosal thickening and paranasal sinuses noted as well. The patient was slowly improving with the treatment plan. The patient also noted to have a small amount of ascites as well. Slot Technician talked to her primary desk attendant at [facility], Dr. Ocampo, and according to him, the patient had only one round of chemotherapy, but later on, the patient decided to drink alcohol and she lost followup. According to his opinion, the patient is not a candidate for any aggressive therapy considering the patient continues to drink alcohol. I did have a discussion with the patient in detail about the recommendations provided by the desk attendant at [facility]. Unfortunately, the patient cannot commit herself, not to drink alcohol. I did have a discussion with the patient about alcohol addiction and potential complication as well. The patient is a good candidate for the hospice as well. Palliative and hospice care consults were requested. Unfortunately, the patient has emergency medical which does not cover hospice benefit. The patient's was out of town and the patient was unable to be discharged home safely. Once the patient's is back, I did talk to him over the phone who is willing to take care of this patient at home. The patient is discharged home in stable condition with prescription of lactulose, multivitamin, Protonix and thiamine and has been given. The patient has been strongly suggested to her architecture faculty member in 1 week as well. If recurrent symptoms, the patient should go to Emergency Room. JOB# [id number]
--- NOTE | 2017-12-21 23:10 | Progress Notes ---
DATE: 12/21/2017 PATIENT'S IDENTIFICATION: A 52-year-old female. SUBJECTIVE: The patient seen and examined. The patient is lying in the bed. The patient is more alert and awake. She is anxious to go home. I did talk to her who is back from [facility], and according to him, he will take care of her at home. The patient has a complex medical history and is extremely debilitated. The patient denies any chest pain, shortness of breath, palpitation, dizziness, nausea, vomiting, headache. PHYSICAL EXAMINATION: VITAL SIGNS: Temperature 99.1, pulse 82, respiratory rate 18, blood pressure 124/73. HEENT: Remarkable for icterus. Tongue more pink and coated. NECK: Supple. No JVD. HEART: Both heart sounds are regular. CHEST AND LUNG: Equal in expansion with mild expiratory wheezing. ABDOMEN: Soft. Mild ascites noted. EXTREMITIES: No edema. NEUROLOGICAL EXAM: Nonfocal. CLINICAL IMPRESSION: 1. Alcohol dependence. 2. Hepatocellular carcinoma. 3. Cirrhosis of liver. 4. Generalized debility. 5. Pancytopenia. 6. Hepatic encephalopathy. 7. Alcohol-related seizure. 8. History of Clostridium difficile colitis. 9. History of supraventricular tachycardia, most likely from electrolyte imbalance, corrected. PLAN: Since the patient has significantly improved. The patient has a good support system. The patient will be discharged to home. The patient has no signs or symptoms of alcohol withdrawal. We will not give Librium. We will continue folic acid, multivitamin, thiamine, along with lactulose and Protonix as well. The patient has been advised to see her primary care physician followup. JOB# [id number]
== END 2017-12-21 10:40 | disposition home or self-care (01) | DRG 384 ==
LOC: ER 01:10 → TELE 06:15 → MSI 12-16 14:07
PROVIDERS: ADMIT Internal Medicine; ATTEND Internal Medicine
PROC: 0HQ0XZZ Repair Scalp Skin, External Approach (ICD-10-PCS; principal; 2017-12-14)
DX: S01.01XA Laceration without foreign body of scalp, initial encounter (principal); D61.818 Other pancytopenia; D68.9 Coagulation defect, unspecified; E72.20 Disorder of urea cycle metabolism, unspecified; C22.8 Malignant neoplasm of liver, primary, unspecified as to type; D69.6 Thrombocytopenia, unspecified; I47.1 Supraventricular tachycardia; M62.82 Rhabdomyolysis; K72.90 Hepatic failure, unspecified without coma; Z85.05 Personal history of malignant neoplasm of liver; Z91.041 Radiographic dye allergy status; W18.39XA Other fall on same level, initial encounter; Y93.89 Activity, other specified; Y92.89 Other specified places as the place of occurrence of the external cause; Y99.8 Other external cause status; D64.9 Anemia, unspecified; Y90.9 Presence of alcohol in blood, level not specified; R25.1 Tremor, unspecified; E87.6 Hypokalemia; Z91.19 Patient's noncompliance with other medical treatment and regimen; G40.909 Epilepsy, unspecified, not intractable, without status epilepticus; F10.239 Alcohol dependence with withdrawal, unspecified; K70.31 Alcoholic cirrhosis of liver with ascites; M19.90 Unspecified osteoarthritis, unspecified site
CPT/HCPCS: 12001; 36415-UA; 70450-TC; 76700-TC; 80048-TC; 80053-TC; 80320-TC; 81001-TC; 82140-TC; 82550-TC; 82553; 83036-90; 83735-TC; 84484-TC; 85007-TC; 85025-TC; 85027-TC; 85610-TC; 86850-TC; 86900-TC; 86901-TC; 90799; 93005; 96374; 96375; J1885; J2060; J2405; J3475; J3480; J7030; J7042; X3904; X6488; Z7610